=== PATIENT | female | born 1975 | race Caucasian/White ===

== ENCOUNTER 2017-08-15 13:57 | Observation (INO) ==
[2017-08-15] MEDS ORDERED: Ondansetron 4 MG/2 ML VIAL IVP ONE ×2 (15:37→18:01)
[2017-08-15] MEDS ORDERED: *HR* LORazepam 2 MG/ML VIAL IVP ONE (15:37)
[2017-08-15 15:43] LABS: Basophils # 0.1 K/mcL (0.0-0.2); Basophils % 0.3 %; Hematocrit 42.8 % (35.3-44.9); Hemoglobin 13.9 g/dL (11.5-15.4); Immature Granulocytes % 0.5 % (0-4); Lymphocytes % 6.6 %; Mean Corpuscular HGB Conc 32.5 g/dL (31.6-35.5); Mean Corpuscular Hemoglobin 28.7 pg (28.0-33.3); Mean Corpuscular Volume 88.2 fL (83.0-100.0); Mean Platelet Volume 10.1 fL (9.4-12.4); Monocytes # 0.2 K/mcL (0.0-1.3); Monocytes % 1.3 %; Neutrophils # 14.3 K/mcL (1.6-8.9); Platelet Count 340 K/mcL (140-400); Red Blood Count 4.85 M/mcL (3.82-4.97); Red Cell Distribution Width 14.2 % (11.5-14.5); Segmented Neutrophils % 91.3 %
--- NOTE | 2017-08-15 16:01 | Emergency Department Note ---
Disposition Clinical Impression: Colitis, Adrenal mass UTI (urinary tract infection) Qualifiers: Urinary tract infection type: site unspecified Hematuria presence: without hematuria Qualified Code(s): N39.0 - Urinary tract infection, site not specified Disposition: Home, Self-Care Condition: Good Time of Disposition: 17:58 General Adult HPI - General Chief complaint: ED Nausea/Vomiting/Diarrhea Stated complaint: vomiting Time Seen by Provider: 08/15/17 15:16 Source: patient Limitations: no limitations Nursing Notes Reviewed: Yes Vital Signs Reviewed: Yes - History of Present Illness HPI Narrative: Patient is a 42-year-old female that presents to the emergency department with abdominal pain. Since this is been ongoing for approximately one week. She states that it originally started on the left side of the abdomen but now is located in the upper center portion of her abdomen. She states that it is been hurting all week but was unable to get in to see the doctor. States that she has been vomiting multiple times and now just vomiting yellow. She states that she has never had anything like this before. States that anytime she eats or drinks she vomits and is unable to keep anything down. She describes this pain as burning. She rates her pain as a 9 out of 10. Patient denies any radiation of her pain. Pain Scale: 9 - Related Data Home Medications Medication Instructions Recorded Confirmed ALPRAZolam [Xanax 1 MG Tablet] 1 mg PO TID 08/15/17 08/15/17 Albuterol Sulfate [Proair Hfa] 2 puff IH Q4H PRN 08/15/17 08/15/17 Baclofen [Lioresal] 10 mg PO HS 08/15/17 08/15/17 Citalopram Hydrobromide [Celexa] 60 mg PO DAILY 08/15/17 08/15/17 Fexofenadine HCl 180 mg PO DAILY 08/15/17 08/15/17 Fluticasone Propionate Nasal 50 mcg NS DAILY 08/15/17 08/15/17 [Flonase] Gabapentin [Neurontin] 600 mg PO TID PRN 08/15/17 08/15/17 Losartan/HCTZ [Hyzaar 50-12.5 1 each PO DAILY 08/15/17 08/15/17 Tablet] Naproxen Sodium [Naproxen Sodium 550 mg PO BID 08/15/17 08/15/17 Ds] SUMAtriptan succinate [Imitrex] 25 mg PO Q2H PRN MDD 50 mg 08/15/17 08/15/17 Tiotropium Br/Olodaterol HCl 2 puff IH DAILY 08/15/17 08/15/17 [Stiolto Respimat Inhal [place]] Topiramate [Topamax] 50 mg PO HS 08/15/17 08/15/17 hydrOXYzine HCl [Hydroxyzine HCl] 25 mg PO TID PRN 08/15/17 08/15/17 Previous Rx's Medication Instructions Recorded Ciprofloxacin [Cipro] 500 mg PO BID #20 tablet 08/15/17 Promethazine [Phenergan] 25 mg RC BID PRN #12 supp.rect 08/15/17 metroNIDAZOLE [Flagyl] 500 mg PO TID #30 tablet 08/15/17 Allergies Allergy/AdvReac Type Severity Reaction Status Date / Time No Known Allergies Allergy Verified 08/15/17 14:01 All systems ED: reviewed and negative except as stated. 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 Absent: respiratory distress, wheezes - Cardiovascular Cardiovascular exam: Present: regular rate, normal rhythm, normal heart sounds, +S1, +S2 - Abdominal Exam Abdominal exam: Present: soft, tenderness, normal bowel sounds Abdominal tenderness: Present: epigastrium (Moderate), diffuse (Mild) - Neurological Exam Neurological exam: Present: alert, oriented X3 - Psychiatric Psychiatric exam: Present: normal affect, normal mood - Skin Skin exam: Present: warm, dry, intact Course Vital Signs Temperature 98.3 F 08/15/17 13:59 Pulse Rate 100 08/15/17 13:59 Respiratory Rate 16 08/15/17 13:59 Blood Pressure 145/79 08/15/17 13:59 O2 Sat by Pulse Oximetry 97 08/15/17 13:59 Temperature 100.0 F H 08/15/17 21:40 Pulse Rate 65 08/15/17 21:40 Respiratory Rate 14 08/15/17 21:40 Blood Pressure 132/69 08/15/17 21:40 O2 Sat by Pulse Oximetry 97 08/15/17 21:40 Oxygen Delivery Oxygen Delivery Room Air Medical Decision Making - MDM Narrative Medical decision making narrative: To the patient presenting with abdominal pain for one week with a CBC, BMP, hepatic panel and lipase, urinalysis and CT of the abdomen and pelvis. She is also stated that she has had chest pain for the past couple of days we will obtain a chest x-ray, troponin and EKG to evaluate this portion of the patient' s complaints. Patient had an elevated white count of 15.7. Patient's CT scan showed evidence of colitis. It also showed evidence of an adrenal mass and radiology recommended follow-up in 6-12 months. Patient's chest x-ray showed no acute cardiopulmonary process. Troponin was negative. The patient's lipase was 22. Urinalysis showed that the patient has a urinary tract infection. Patient will be put on Cipro and Flagyl which will cover for the colitis and urinary tract infection. The patient will also be given a dose of Decadron here in the emergency department in case this is an inflammatory process. The patient is stable and appropriate for discharge. The patient was discharged home with recommendation to follow up with gastroenterology and her primary care physician. I provided her with information to GI. The patient is stable and appropriate for discharge. The patient was discharged home at this time. - Lab Data Lab results reviewed: Yes I reviewed the patient's lab results. Result diagrams: 08/15/17 15:31 08/15/17 15:31 Lab Results 08/15/17 08/15/17 08/15/17 Range/Units 15:31 15:31 15:31 WBC 15.7 H (4.3-11.1) K/mcL RBC 4.85 (3.82-4.97) M/mcL Hgb 13.9 (11.5-15.4) g/dL Hct 42.8 (35.3-44.9) % MCV 88.2 (83.0-100.0) fL MCH 28.7 (28.0-33.3) pg MCHC 32.5 (31.6-35.5) g/dL RDW 14.2 (11.5-14.5) % Plt Count 340 (140-400) K/mcL MPV 10.1 (9.4-12.4) fL Immature Gran % 0.5 (0-4) % Seg Neutrophils % 91.3 % Lymphocytes % 6.6 % Monocytes % 1.3 % Eosinophils % 0.0 % Basophils % 0.3 % Neutrophils # 14.3 H (1.6-8.9) K/mcL Lymphocytes # 1.0 (0.6-4.6) K/mcL Monocytes # 0.2 (0.0-1.3) K/mcL Eosinophils # 0.0 (0.0-0.6) K/mcL Basophils # 0.1 (0.0-0.2) K/mcL Sodium 140 (136-145) mEq/L Potassium 3.8 (3.5-5.1) mEq/L Chloride 108 H (98-107) mEq/L Carbon Dioxide 25 (23-29) mEq/L BUN 12 (6-20) mg/dL Creatinine 0.66 (0.60-1.20) mg/dL Est GFR ( Amer) > 60 (> 60) Est GFR (Non-Af Amer) > 60 (> 60) BUN/Creatinine Ratio 18 (6-26) Glucose 163 H (70-105) mg/dL Calculated Osmolality 293 (280-300) Calcium 9.5 (8.6-10.3) mg/dL Magnesium 2.0 (1.6-2.6) mg/dL Total Bilirubin 0.3 (0.3-1.0) mg/dL Direct Bilirubin 0.0 (0.0-0.2) mg/dL Indirect Bilirubin 0.3 (0.0-1.2) mg/dL AST 12 L (13-39) Units/L ALT 9 (7-52) Units/L Alkaline Phosphatase 69 (34-104) Units/L Troponin I < 0.03 (< 0.04) ng/mL Serum Total Protein 7.3 (6.4-8.9) g/dL Albumin 4.2 (3.5-5.7) g/dL Globulin 3.1 (2.4-3.5) g/dL Albumin/Globulin Ratio 1.4 (1.1-2.2) Lipase 22 (11-82) Units/L Urine Color (Yellow) Urine Clarity (Clear) Urine pH (5.0-8.0) pH Units Ur Specific [place] (1.010-1.025) Urine Protein (Neg-Trace) mg/dL Urine Glucose (UA) (Normal) mg/dL Urine Ketones (Negative) mg/dL Urine Blood (Negative) Urine Nitrite (Negative) Urine Bilirubin (Negative) Urine Urobilinogen (Normal) mg/dL Ur Leukocyte Esterase (Negative) Urine Microscopic RBC (0-3) per hpf Urine Microscopic WBC (0-3) per hpf Ur Squamous Epith Cells (None-Few) per lpf Amorphous Sediment (Few) Urine Bacteria (None-Few) per hpf Hyaline Casts (None-Few) per lpf Ur Culture Indicated? (NO) 08/15/17 Range/Units 16:17 WBC (4.3-11.1) K/mcL RBC (3.82-4.97) M/mcL Hgb (11.5-15.4) g/dL Hct (35.3-44.9) % MCV (83.0-100.0) fL MCH (28.0-33.3) pg MCHC (31.6-35.5) g/dL RDW (11.5-14.5) % Plt Count (140-400) K/mcL MPV (9.4-12.4) fL Immature Gran % (0-4) % Seg Neutrophils % % Lymphocytes % % Monocytes % % Eosinophils % % Basophils % % Neutrophils # (1.6-8.9) K/mcL Lymphocytes # (0.6-4.6) K/mcL Monocytes # (0.0-1.3) K/mcL Eosinophils # (0.0-0.6) K/mcL Basophils # (0.0-0.2) K/mcL Sodium (136-145) mEq/L Potassium (3.5-5.1) mEq/L Chloride (98-107) mEq/L Carbon Dioxide (23-29) mEq/L BUN (6-20) mg/dL Creatinine (0.60-1.20) mg/dL Est GFR ( Amer) (> 60) Est GFR (Non-Af Amer) (> 60) BUN/Creatinine Ratio (6-26) Glucose (70-105) mg/dL Calculated Osmolality (280-300) Calcium (8.6-10.3) mg/dL Magnesium (1.6-2.6) mg/dL Total Bilirubin (0.3-1.0) mg/dL Direct Bilirubin (0.0-0.2) mg/dL Indirect Bilirubin (0.0-1.2) mg/dL AST (13-39) Units/L ALT (7-52) Units/L Alkaline Phosphatase (34-104) Units/L Troponin I (< 0.04) ng/mL Serum Total Protein (6.4-8.9) g/dL Albumin (3.5-5.7) g/dL Globulin (2.4-3.5) g/dL Albumin/Globulin Ratio (1.1-2.2) Lipase (11-82) Units/L Urine Color Yellow (Yellow) Urine Clarity Cloudy A (Clear) Urine pH 7.5 (5.0-8.0) pH Units Ur Specific [place] 1.022 (1.010-1.025) Urine Protein 30 H (Neg-Trace) mg/dL Urine Glucose (UA) Normal (Normal) mg/dL Urine Ketones Negative (Negative) mg/dL Urine Blood Small H (Negative) Urine Nitrite Positive A (Negative) Urine Bilirubin Negative (Negative) Urine Urobilinogen Normal (Normal) mg/dL Ur Leukocyte Esterase Small H (Negative) Urine Microscopic RBC 3-5 H (0-3) per hpf Urine Microscopic WBC 15-30 H (0-3) per hpf Ur Squamous Epith Cells Moderate H (None-Few) per lpf Amorphous Sediment Few (Few) Urine Bacteria Many H (None-Few) per hpf Hyaline Casts Few (None-Few) per lpf Ur Culture Indicated? YES A (NO) - Radiology Data Radiology results reviewed: Yes I reviewed the patient's radiology results. Abdomen/Pelvis CT 08/15/17 15:35 IMPRESSION: Mucosal thickening of the rectosigmoid colon with serosal haziness and mild pericolonic fat stranding without abscess formation, findings most compatible with colitis. The patient has evidence of pulmonary and splenic granulomatous disease. Right hypodense adrenal masses noted, likely an adenoma. RECOMMENDATIONS: Due to size of right adrenal lesion, would suggest follow-up CT scan in 6 to 12 months with attention to the adrenals. D/ / 08/15/2017 17:28:38 Nubia Win MD / [email or web address] Interpreting Provider: Nubia Win MD Chest X-Ray 08/15/17 15:58 IMPRESSION: No acute cardiopulmonary process D/ / 08/15/2017 16:58:31 Brian Green MD / [email or web address] Interpre[facility] Provider: Brian Green MD - EKG Data EKG #1 EKG attestation: Yes I reviewed and interpreted this EKG. EKG results narrative: EKG showed a sinus rhythm at a rate of 61 beats minute, VA interval of 234, QRS duration of 85, QTC of 429 with a normal axis. There is no STEMI noted on EKG. Attestation Statement - Attestation Attestation: I examined this patient and my medical decision-making was reviewed with the Resident Physician. I agree with the documented findings, disposition and treatment plan as described except to the extent set forth below. Findings consistent with colitis. Patient has intractable nausea or vomiting. We had several attempts at discharge however patient has ongoing nausea despite multiple medication interventions. We will admit for further evaluation. Antibiotics were initiated.
[2017-08-15 16:10] LABS: Alanine Aminotransferase 9 Units/L (7-52); Albumin 4.2 g/dL (3.5-5.7); Albumin/Globulin Ratio 1.4 (1.1-2.2); Alkaline Phosphatase 69 Units/L (34-104); Aspartate Amino Transferase 12 Units/L (13-39); BUN/Creatinine Ratio 18 (6-26); Bilirubin,Indirect 0.3 mg/dL (0.0-1.2); Bilirubin,Total 0.3 mg/dL (0.3-1.0); Blood Urea Nitrogen 12 mg/dL (6-20); Calcium 9.5 mg/dL (8.6-10.3); Carbon Dioxide 25 mEq/L (23-29); Chloride 108 mEq/L (98-107); Globulin 3.1 g/dL (2.4-3.5); Glucose 163 mg/dL (70-105); Lipase 22 Units/L (11-82); Osmolality,Calculated 293 (280-300); Potassium 3.8 mEq/L (3.5-5.1); Sodium 140 mEq/L (136-145); Total Protein 7.3 g/dL (6.4-8.9); eGFR For African Americans > 60 (> 60); eGFR For Non-African Americans > 60 (> 60)
[2017-08-15 16:25] LABS: Bilirubin,Urine Negative (Negative); Blood,Urine Small (Negative); Clarity,Urine Cloudy (Clear); Color,Urine Yellow (Yellow); Glucose,Urine (UA) Normal (Normal); Ketones,Urine Negative (Negative); Leukocyte Esterase,Urine Small (Negative); Nitrite,Urine Positive (Negative); PH,Urine 7.5 pH Units (5.0-8.0); Protein,Urine 30 mg/dL (Neg-Trace); Specific Gravity,Urine 1.022 (1.010-1.025); Urobilinogen,Urine Normal (Normal)
[2017-08-15 16:28] LABS: Bacteria,Urine Many per hpf (None-Few); Hyaline Casts,Urine Few per lpf (None-Few); Squamous Epithelial Cell,Urine Moderate per lpf (None-Few); WBC,Urine 15-30 per hpf (0-3)
[2017-08-15] MEDS: 0.9 % Sodium Chloride 1,000 ML IVC SCH ×2 (16:34→18:45)
[2017-08-15 16:38] LABS: Amorphous Sediment,Urine Few (Few)
[2017-08-15] MEDS ORDERED: Dexamethasone 4 MG/ML VIAL IVP ONE (17:50)
[2017-08-15] MEDS ORDERED: Haloperidol Lactate 5 MG/ML VIAL IVP ONE (18:34)
[2017-08-15] MEDS ORDERED: Naloxone 0.4 MG/ML INJ IVP PRN (20:15)
[2017-08-15] MEDS: D5% in 0.45% NACL 1,000 ML IVC SCH (21:53)
--- NOTE | 2017-08-15 22:04 | Internal Med History&Physical ---
Date of Encounter: 08/15/17 Time of Encounter: 21:00 Assessment and Plan (1) SIRS (systemic inflammatory response syndrome) Current visit: Yes Status: Acute Admit the pt into Med Surg She does meet SIRS criteria with Fever and source of inf as colitis cont IV hydration Empirical abx (2) Rectosigmoiditis Current visit: Yes Status: Acute Reviewed CT of Abd / P - noticed recto sigmoid colitis concerned for inflammatory bowel disease too..especially with family h/o Crohn' s disease will start her on empirical abx Cipro + Flagyl pt never had colonoscopy..she may get benefit the colonoscopy will consult GI in AM NPO after mid night Cont symptomatic and supportive care (3) Colitis Current visit: Yes Status: Acute (4) Adrenal mass Current visit: Yes Status: Acute incidental finding need out pt f/u pt does aware of it (5) UTI (urinary tract infection) Current visit: Yes Status: Acute UA looks abnormal on abx Cipro f/u on urine cx Qualifiers: Urinary tract infection type: site unspecified Hematuria presence: without hematuria Qualified Code(s): N39.0 - Urinary tract infection, site not specified (6) HTN (hypertension) Current visit: Yes Status: Acute stable resumed home meds Qualifiers: Hypertension type: essential hypertension Qualified Code(s): I10 - Essential (primary) hypertension (7) COPD (chronic obstructive pulmonary disease) Current visit: Yes Status: Chronic not in exacerbation resumed home regimen Qualifiers: Qualified Code(s): J44.9 - Chronic obstructive pulmonary disease, unspecified (8) Anxiety Current visit: Yes Status: Chronic resumed home meds (9) Tobacco dependence Current visit: Yes Status: Acute counseled to quit on nicotine patch Internal Medicine - H&P: HPI Chief complaint: Abdominal pain, N/V Admitted From: Emergency Dept Plans for Post Hospital Care: Home History of present illness: Ms. Espinoza is a 42 year old female with known PMH of HTN, COPD, not on home O2 dependent, chronic tobacco dependence and anxiety pt presents to the emergency department with abdominal pain, intractable nausea and vomiting since Saturday. She states that it originally started on the left side of the abdomen but now is located in the upper center portion of her abdomen. She states that it is been hurting all week but was unable to get in to see the doctor. States that she has been vomiting multiple times and now just vomiting yellow. She states that she has never had anything like this before. She describes this pain as burning, 9 out of 10 in severity and non radiating. She also started having diarrhea since this morning. Denied any melena / BRBPR / Hematemesis Past Med Surg Social Fam HX - Past Medical History Medical history: asthma, diabetes, hypertension Psychiatric history: anxiety - Past Surgical History Surgical History: , other - Social History Smoking Status: Current every day smoker Smokeless Tobacco Status: No Alcohol use: occasionally Drug use: none - Family History Mother Hx Family Genitourinary Disorders: Yes (kidney problems) Hx Family Endocrine Disorder: Yes (DM) Father Hx Family Cardiac Disorders: Yes ([place]) Hx Family Respiratory Disorders: Yes Internal Medicine - H&P: Meds ALPRAZolam [Xanax 1 MG Tablet] 1 mg PO TID 08/15/17 [History] Albuterol Sulfate [Proair Hfa] 2 puff IH Q4H PRN 08/15/17 [History] Baclofen [Lioresal] 10 mg PO HS 08/15/17 [History] Ciprofloxacin [Cipro] 500 mg PO BID #20 tablet 08/15/17 [Rx] Citalopram Hydrobromide [Celexa] 60 mg PO DAILY 08/15/17 [History] Fexofenadine HCl 180 mg PO DAILY 08/15/17 [History] Fluticasone Propionate Nasal [Flonase] 50 mcg NS DAILY 08/15/17 [History] Gabapentin [Neurontin] 600 mg PO TID PRN 08/15/17 [History] Losartan/HCTZ [Hyzaar 50-12.5 Tablet] 1 each PO DAILY 08/15/17 [History] Naproxen Sodium [Naproxen Sodium Ds] 550 mg PO BID 08/15/17 [History] Promethazine [Phenergan] 25 mg RC BID PRN #12 supp.rect 08/15/17 [Rx] SUMAtriptan succinate [Imitrex] 25 mg PO Q2H PRN MDD 50 mg 08/15/17 [History] Tiotropium Br/Olodaterol HCl [Stiolto Respimat Inhal [place]] 2 puff IH DAILY 02/22 [History] Topiramate [Topamax] 50 mg PO HS 08/15/17 [History] hydrOXYzine HCl [Hydroxyzine HCl] 25 mg PO TID PRN 08/15/17 [History] metroNIDAZOLE [Flagyl] 500 mg PO TID #30 tablet 08/15/17 [Rx] 3 Allergy/AdvReac Type Severity Reaction Status Date / Time No Known Allergies Allergy Verified 08/15/17 14:01 All Systems PM: A 10-system review of systems was performed and is negative for pertinent findings except as documented above in the HPI. Review of systems: All the systems are reviewed everything is benign except the systems and symptoms I mentioned in the history of present illness - Constitutional Vitals: Temp Pulse Resp BP Pulse Ox 100.0 F H 65 14 132/69 97 08/15/17 21:40 08/15/17 21:40 08/15/17 21:40 08/15/17 21:40 08/15/17 21:40 General appearance: Present: mild distress, A&O X 3, answers questions appropriately Exam: Looks weak and lethargic - Head Head exam: Present: atraumatic, normal inspection - Respiratory Respiratory exam: Present: decreased breath sounds. Absent: rales, respiratory distress, rhonchi, wheezes - Cardiovascular Cardiovascular exam: Present: RRR, +S1, +S2. Absent: tachycardia - GI/Abdominal GI/Abdominal exam: Present: normal bowel sounds, soft, tenderness (Lower abdomen ). Absent: distended, guarding, rebound, rigid - Extremities Exam Extremities exam: Absent: calf tenderness, pedal edema, tenderness - Back Exam Back exam: Absent: CVA tenderness (L), CVA tenderness (R) - Neurological Exam Neurological exam: Present: alert, oriented X3 - Psychiatric Psychiatric exam: Present: normal affect, normal mood - Skin Skin exam: Absent: rash Internal Med - H&P Results - Labs CBC & Chem 7: 08/15/17 15:31 08/15/17 15:31
[2017-08-15] MEDS ORDERED: hydrOXYzine pamoate 25 MG CAPSULE PO PRN (22:13)
[2017-08-15] MEDS ORDERED: ALPRAZolam 1 MG TABLET PO PRN (22:13)
[2017-08-15] MEDS ORDERED: *HR* FentaNYL (PF) 100 MCG/2 ML VIAL IVP PRN (22:13)
[2017-08-15] MEDS ORDERED: Gabapentin 300 MG CAPSULE PO PRN (22:13)
[2017-08-15] MEDS: Ondansetron 4 MG/2 ML VIAL IVP PRN (22:40)
[2017-08-16] MEDS: Acetaminophen 325 MG TABLET PO PRN ×2 (03:21→20:02)
[2017-08-16] MEDS: *HR* Promethazine 25 MG/ML VIAL IVP PRN ×4 (03:25→23:18)
[2017-08-16 05:24] LABS: Basophils % 0.1 %; Hematocrit 38.9 % (35.3-44.9); Hemoglobin 12.8 g/dL (11.5-15.4); Immature Granulocytes % 0.6 % (0-4); Lymphocytes # 1.6 K/mcL (0.6-4.6); Lymphocytes % 9.8 %; Mean Corpuscular HGB Conc 32.9 g/dL (31.6-35.5); Mean Corpuscular Hemoglobin 28.8 pg (28.0-33.3); Mean Corpuscular Volume 87.4 fL (83.0-100.0); Mean Platelet Volume 10.6 fL (9.4-12.4); Monocytes # 0.6 K/mcL (0.0-1.3); Neutrophils # 13.5 K/mcL (1.6-8.9); Platelet Count 297 K/mcL (140-400); Red Blood Count 4.45 M/mcL (3.82-4.97); Red Cell Distribution Width 14.4 % (11.5-14.5); Segmented Neutrophils % 85.5 %
[2017-08-16] MEDS: D5% in 0.45% NACL 1,000 ML IVC SCH (05:41)
[2017-08-16] MEDS: *HR* Enoxaparin 40 MG/0.4 ML SYRINGE SQ SCH (05:42)
[2017-08-16 05:57] LABS: BUN/Creatinine Ratio 22 (6-26); Blood Urea Nitrogen 12 mg/dL (6-20); Calcium 8.6 mg/dL (8.6-10.3); Carbon Dioxide 23 mEq/L (23-29); Chloride 109 mEq/L (98-107); Glucose 153 mg/dL (70-105); Osmolality,Calculated 289 (280-300); Potassium 3.3 mEq/L (3.5-5.1); Sodium 138 mEq/L (136-145); eGFR For African Americans > 60 (> 60); eGFR For Non-African Americans > 60 (> 60)
--- NOTE | 2017-08-16 06:39 | Electrocardiograph Report ---
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
[2017-08-16] MEDS: Losartan/HCTZ 50-12.5 TABLET PO SCH (08:36)
[2017-08-16] MEDS: Loratadine 10 MG TABLET PO SCH (08:36)
[2017-08-16] MEDS: Fluticasone Propionate Nasal 50 MCG/SPRAY BOTTLE NS SCH (08:36)
[2017-08-16] MEDS: Ondansetron 4 MG/2 ML VIAL IVP PRN ×3 (08:37→20:02)
[2017-08-16] MEDS: *HR* HYDROcodone/Acet 5/325 mg TABLET PO PRN ×2 (10:55→21:03)
[2017-08-16] MEDS: 0.9 % Sodium Chloride 1,000 ML IVC SCH ×7 (11:08→16:23)
--- NOTE | 2017-08-16 15:05 | Internal Med Progress Note ---
Date of Encounter: 08/16/17 Time of Encounter: 13:00 - Assessment and plan (1) SIRS (systemic inflammatory response syndrome) Current Visit: Yes Status: Acute Assessment and plan: Meets SIRS criteria with fever and source of infection as colitis, UTI. WBC 15K , afebrile at this time. Continue IV fluids, IV ATB. Lactic acid pending. Aggressive IS (2) Rectosigmoiditis Current Visit: Yes Status: Acute Assessment and plan: Presented to ER with abdominal pain. ABD CT concerning for rectosigmoid colitis. Keep NPO, continue IV Flagyl, Cipro. GI consulted (3) UTI (urinary tract infection) Current Visit: Yes Status: Acute Assessment and plan: UA indicative of UTI. Continue Cipro. Urine culture pending, narrow accordingly as culture finalizes. Qualifiers: Urinary tract infection type: site unspecified Hematuria presence: without hematuria Qualified Code(s): N39.0 - Urinary tract infection, site not specified (4) Lethargy Current Visit: Yes Status: Acute Assessment and plan: lethargy noted on 08/16 exam. Suspect secondary to acute illness and polypharmacy. Patient is on multiple sedating/psychiatric medications. Holding home baclofen (5) COPD (chronic obstructive pulmonary disease) Current Visit: Yes Status: Chronic Assessment and plan: per hx. CXR without nonacute. No evidence of acute exacerbation. Qualifiers: Qualified Code(s): J44.9 - Chronic obstructive pulmonary disease, unspecified (6) HTN (hypertension) Current Visit: Yes Status: Acute Assessment and plan: per hx. BP variable but acceptable. Continue home BP medication. Monitor BP and titrate PRN Qualifiers: Hypertension type: essential hypertension Qualified Code(s): I10 - Essential (primary) hypertension (7) DVT prophylaxis Current Visit: Yes Status: Acute Assessment and plan: lovenox - Subjective Interval history: Seen and examined at bedside. Patient is new to me. Information obtained from chart review and patient report. She does not provide much detail during exam. She is drowsy and will only open eyes to name is called. Shakes head when asked if she is having abdominal pain, otherwise is all for any other patient. No family available for collateral. - Constitutional Vitals: Temp Pulse Resp BP Pulse Ox 98.2 F 61 16 143/74 97 08/16/17 10:44 08/16/17 10:44 08/16/17 10:44 08/16/17 10:44 08/16/17 10:44 General appearance: Present: A&O X 3, answers questions appropriately - Head Head exam: Present: atraumatic, normocephalic - Eye Eye exam: Present: PERRL, conjuntiva pink, sclera anicteric Pupils: Present: PERRL - Neck Neck exam general surgery: Present: supple, trachea midline. Absent: lymphadenopathy - Respiratory Respiratory exam: Present: CTAB. Absent: accessory muscle use, rales, rhonchi, wheezes - Cardiovascular Cardiovascular exam: Present: RRR, +S1, +S2. Absent: diastolic murmur, gallop, rubs, systolic murmur - GI/Abdominal GI/Abdominal exam: Present: normal bowel sounds, soft, no peritoneal signs. Absent: distended, tenderness - Extremities Exam Extremities exam: Present: warm, radial pulses palpable and symmetrical. Absent : calf tenderness, cyanotic, pedal edema - Neurological Exam Neurological exam: Present: CN II-XII intact, oriented X3, no focal deficits. Absent: pronater drift, facial droop, speech deficit - Skin Skin exam: Present: dry, intact Internal Medicine: Result - Labs CBC & Chem 7: 08/16/17 04:47 08/16/17 04:47 Labs: Short CBC 08/16/17 Range/Units 04:47 WBC 15.8 H (4.3-11.1) K/mcL Hgb 12.8 (11.5-15.4) g/dL Hct 38.9 (35.3-44.9) % Plt Count 297 (140-400) K/mcL Neutrophils # 13.5 H (1.6-8.9) K/mcL BMP 08/16/17 04:47 Sodium 138 Potassium 3.3 L Chloride 109 H Carbon Dioxide 23 BUN 12 Creatinine 0.54 L Glucose 153 H Calcium 8.6 Consult Discharge Plan - Plan Referrals: Seth Mccurdy DO [Primary Care Provider] -
[2017-08-16] MEDS: SUMAtriptan succinate 25 MG TABLET PO PRN (20:02)
[2017-08-16] MEDS: ALPRAZolam 1 MG TABLET PO PRN (20:03)
[2017-08-16] MEDS: Topiramate 25 MG TABLET PO SCH (20:59)
[2017-08-16] MEDS: MetroNIDAZOLE 500 MG/100 ML 500 MG/100 ML BAG IVPB SCH (20:59)
[2017-08-16] MEDS ORDERED: Baclofen 10 MG TABLET PO SCH (21:00)
[2017-08-17] MEDS: Ondansetron 4 MG/2 ML VIAL IVP PRN ×4 (03:36→23:51)
[2017-08-17] MEDS: *HR* HYDROcodone/Acet 5/325 mg TABLET PO PRN ×4 (03:44→23:50)
[2017-08-17] MEDS: SUMAtriptan succinate 25 MG TABLET PO PRN ×2 (03:58→09:16)
[2017-08-17 04:26] LABS: Hematocrit 38.6 % (35.3-44.9); Hemoglobin 12.8 g/dL (11.5-15.4); Mean Corpuscular HGB Conc 33.2 g/dL (31.6-35.5); Mean Corpuscular Hemoglobin 28.8 pg (28.0-33.3); Mean Corpuscular Volume 86.7 fL (83.0-100.0); Mean Platelet Volume 10.2 fL (9.4-12.4); Platelet Count 269 K/mcL (140-400); Red Blood Count 4.45 M/mcL (3.82-4.97); Red Cell Distribution Width 14.3 % (11.5-14.5)
[2017-08-17] MEDS: ALPRAZolam 1 MG TABLET PO PRN ×2 (04:33→17:47)
[2017-08-17] MEDS: MetroNIDAZOLE 500 MG/100 ML 500 MG/100 ML BAG IVPB SCH ×3 (06:19→21:40)
[2017-08-17] MEDS: *HR* Enoxaparin 40 MG/0.4 ML SYRINGE SQ SCH (06:23)
[2017-08-17] MEDS: 0.9 % Sodium Chloride 1,000 ML IVC SCH (09:29)
[2017-08-17] MEDS: *HR* Promethazine 25 MG/ML VIAL IVP PRN ×3 (09:42→21:35)
[2017-08-17] MEDS: Losartan/HCTZ 50-12.5 TABLET PO SCH (09:47)
[2017-08-17] MEDS: Loratadine 10 MG TABLET PO SCH (09:47)
[2017-08-17] MEDS: Fluticasone Propionate Nasal 50 MCG/SPRAY BOTTLE NS SCH (09:48)
[2017-08-17 12:55] LABS: BUN/Creatinine Ratio 20 (6-26); Blood Urea Nitrogen 12 mg/dL (6-20); Calcium 8.6 mg/dL (8.6-10.3); Carbon Dioxide 25 mEq/L (23-29); Chloride 106 mEq/L (98-107); Glucose 106 mg/dL (70-105); Osmolality,Calculated 288 (280-300); Sodium 139 mEq/L (136-145); eGFR For African Americans > 60 (> 60); eGFR For Non-African Americans > 60 (> 60)
[2017-08-17] MEDS: amLODIPine 5 MG TABLET PO SCH (15:19)
--- NOTE | 2017-08-17 16:52 | Internal Med Progress Note ---
Date of Encounter: 08/17/17 Time of Encounter: 11:30 - Assessment and plan (1) Rectosigmoiditis Current Visit: Yes Status: Acute Assessment and plan: Presented to ER with abdominal pain. ABD CT concerning for rectosigmoid colitis. Patient has history of ulcerative colitis and family. Initially managed with NPO, advance diet to clears as she tolerates. Cont IV Flagyl, Cipro. EGD planned 08/19. GI following. (2) SIRS (systemic inflammatory response syndrome) Current Visit: Yes Status: Acute Assessment and plan: Meets SIRS criteria with fever and source of infection as colitis, UTI. WBC 15K , afebrile at this time. Continue IV fluids, IV ATB. Lactic acid pending. Aggressive IS (3) UTI (urinary tract infection) Current Visit: Yes Status: Acute Assessment and plan: UA indicative of UTI. Urine culture with pansensitive Escherichia coli. Start ceftriaxone. Qualifiers: Urinary tract infection type: site unspecified Hematuria presence: without hematuria Qualified Code(s): N39.0 - Urinary tract infection, site not specified (4) Hypokalemia Current Visit: Yes Status: Acute Assessment and plan: K 3.0; replacement ordered. Monitor repeat potassium level (5) Lethargy Current Visit: Yes Status: Acute Assessment and plan: lethargy noted on 08/16 exam. Suspect secondary to acute illness and polypharmacy. Patient is on multiple sedating/psychiatric medications. Holding home baclofen. Resume Xanax decreased to twice a day. Mentation significantly improved on 08/17 (6) COPD (chronic obstructive pulmonary disease) Current Visit: Yes Status: Chronic Assessment and plan: per hx. CXR without nonacute. No evidence of acute exacerbation. Qualifiers: Qualified Code(s): J44.9 - Chronic obstructive pulmonary disease, unspecified (7) HTN (hypertension) Current Visit: Yes Status: Acute Assessment and plan: per hx. BP controlled requiring PRN hydralazine. Continue home ARB/HCTZ, add amlodipine. Monitor BP and titrate PRN Qualifiers: Hypertension type: essential hypertension Qualified Code(s): I10 - Essential (primary) hypertension (8) DVT prophylaxis Current Visit: Yes Status: Acute Assessment and plan: lovenox - Subjective Interval history: Seen and examined at bedside; mentation significantly improved from yesterday's exam. She is still complaining of some abdominal discomfort, but overall improved. No fevers or chills. Has some intermittent dysuria. She has an appetite would like to increase her diet if possible. Discussed case with Dr. Addison and he is aware of consult. - Constitutional Vitals: Temp Pulse Resp BP Pulse Ox 97.8 F 59 15 158/77 97 08/17/17 15:31 08/17/17 15:31 08/17/17 15:31 08/17/17 15:31 08/17/17 15:31 General appearance: Present: A&O X 3, answers questions appropriately - Head Head exam: Present: atraumatic, normocephalic - Eye Eye exam: Present: PERRL, conjuntiva pink, sclera anicteric Pupils: Present: PERRL - Neck Neck exam general surgery: Present: supple, trachea midline. Absent: lymphadenopathy - Respiratory Respiratory exam: Present: CTAB. Absent: accessory muscle use, rales, rhonchi, wheezes - Cardiovascular Cardiovascular exam: Present: RRR, +S1, +S2. Absent: diastolic murmur, gallop, rubs, systolic murmur - GI/Abdominal GI/Abdominal exam: Present: normal bowel sounds, soft, no peritoneal signs. Absent: distended, tenderness - Extremities Exam Extremities exam: Present: warm, radial pulses palpable and symmetrical. Absent : calf tenderness, cyanotic, pedal edema - Neurological Exam Neurological exam: Present: CN II-XII intact, oriented X3, no focal deficits. Absent: pronater drift, facial droop, speech deficit - Skin Skin exam: Present: dry, intact Internal Medicine: Result - Labs CBC & Chem 7: 08/17/17 04:18 08/17/17 12:08 Labs: Short CBC 08/17/17 Range/Units 04:18 WBC 14.8 H (4.3-11.1) K/mcL Hgb 12.8 (11.5-15.4) g/dL Hct 38.6 (35.3-44.9) % Plt Count 269 (140-400) K/mcL BMP 08/17/17 12:08 Sodium 139 Potassium 3.0 L Chloride 106 Carbon Dioxide 25 BUN 12 Creatinine 0.61 Glucose 106 H Calcium 8.6 Consult Discharge Plan - Plan Referrals: Seth Mccurdy DO [Primary Care Provider] -
[2017-08-17] MEDS: cefTRIAXone 1,000 MG in Water for inj. (sterile) 20 ML 10 ML IVP SCH (17:45)
[2017-08-17 17:57] LABS: Hematocrit 39.7 % (35.3-44.9); Hemoglobin 13.2 g/dL (11.5-15.4); Immature Platelets 3.5 % (1.1-6.1); Mean Corpuscular HGB Conc 33.2 g/dL (31.6-35.5); Mean Corpuscular Hemoglobin 28.9 pg (28.0-33.3); Mean Corpuscular Volume 87.1 fL (83.0-100.0); Mean Platelet Volume 10.2 fL (9.4-12.4); Red Blood Count 4.56 M/mcL (3.82-4.97); Red Cell Distribution Width 14.2 % (11.5-14.5)
[2017-08-17] MEDS: Topiramate 25 MG TABLET PO SCH (21:44)
[2017-08-18] MEDS: 0.9 % Sodium Chloride 1,000 ML IVC SCH ×2 (02:35→15:36)
[2017-08-18] MEDS: *HR* Promethazine 25 MG/ML VIAL IVP PRN ×4 (03:31→20:21)
[2017-08-18] MEDS: MetroNIDAZOLE 500 MG/100 ML 500 MG/100 ML BAG IVPB SCH ×3 (05:04→20:34)
[2017-08-18] MEDS: SUMAtriptan succinate 25 MG TABLET PO PRN (05:04)
[2017-08-18 05:21] LABS: BUN/Creatinine Ratio 17 (6-26); Blood Urea Nitrogen 9 mg/dL (6-20); Calcium 8.6 mg/dL (8.6-10.3); Carbon Dioxide 25 mEq/L (23-29); Chloride 109 mEq/L (98-107); Glucose 109 mg/dL (70-105); Osmolality,Calculated 291 (280-300); Potassium 3.3 mEq/L (3.5-5.1); Sodium 141 mEq/L (136-145); eGFR For African Americans > 60 (> 60); eGFR For Non-African Americans > 60 (> 60)
[2017-08-18] MEDS: *HR* HYDROcodone/Acet 5/325 mg TABLET PO PRN ×3 (06:12→18:10)
[2017-08-18] MEDS: Ondansetron 4 MG/2 ML VIAL IVP PRN ×3 (06:12→18:09)
[2017-08-18] MEDS: *HR* Enoxaparin 40 MG/0.4 ML SYRINGE SQ SCH (06:17)
[2017-08-18] MEDS: amLODIPine 5 MG TABLET PO SCH (08:31)
[2017-08-18] MEDS: Loratadine 10 MG TABLET PO SCH (08:32)
[2017-08-18] MEDS: Losartan/HCTZ 50-12.5 TABLET PO SCH (08:32)
[2017-08-18] MEDS: ALPRAZolam 1 MG TABLET PO PRN ×2 (08:37→20:21)
[2017-08-18] MEDS: Fluticasone Propionate Nasal 50 MCG/SPRAY BOTTLE NS SCH (08:39)
[2017-08-18] MEDS ORDERED: SODIUM CHLORIDE/NAHCO3/KCL/PEG 4,000 ML SOLN.RECON PO ONE (11:10)
--- NOTE | 2017-08-18 11:44 | Internal Med Progress Note ---
Date of Encounter: 08/18/17 Time of Encounter: 11:13 - Assessment and plan (1) Rectosigmoiditis Current Visit: Yes Status: Acute Assessment and plan: Presented to ER with abdominal pain. ABD CT concerning for rectosigmoid colitis. Patient has history of ulcerative colitis and family. Initially managed with NPO, advance diet to clears as she tolerates. Cont IV Flagyl, Cipro. EGD planned 08/19. Start bowel prep this evening. NPO AT 0700. GI following. (2) SIRS (systemic inflammatory response syndrome) Current Visit: Yes Status: Acute Assessment and plan: Meets SIRS criteria with fever and source of infection as colitis, UTI. Cont to have intermittent fevers. Repeat CXR nonacute. ontinue IV fluids, IV ATB. Aggressive IS. CBC pending (3) UTI (urinary tract infection) Current Visit: Yes Status: Acute Assessment and plan: UA indicative of UTI. Urine culture with pansensitive Escherichia coli. Cont ceftriaxone-day 2 Qualifiers: Urinary tract infection type: site unspecified Hematuria presence: without hematuria Qualified Code(s): N39.0 - Urinary tract infection, site not specified (4) Hypokalemia Current Visit: Yes Status: Acute Assessment and plan: K 3.0; replacement ordered. Monitor repeat potassium level (5) Lethargy Current Visit: Yes Status: Acute Assessment and plan: lethargy noted on 08/16 exam. Suspect secondary to acute illness and polypharmacy. Patient is on multiple sedating/psychiatric medications. Holding home baclofen. Home Xanax decreased to twice a day. Mentation improved as of (6) COPD (chronic obstructive pulmonary disease) Current Visit: Yes Status: Chronic Assessment and plan: per hx. CXR without nonacute. No evidence of acute exacerbation. Qualifiers: Qualified Code(s): J44.9 - Chronic obstructive pulmonary disease, unspecified (7) HTN (hypertension) Current Visit: Yes Status: Acute Assessment and plan: per hx. BP controlled requiring PRN hydralazine. Continue home ARB/HCTZ, add amlodipine. Monitor BP and titrate PRN Qualifiers: Hypertension type: essential hypertension Qualified Code(s): I10 - Essential (primary) hypertension (8) DVT prophylaxis Current Visit: Yes Status: Acute Assessment and plan: lovenox - Subjective Interval history: Seen and examined at bedside; says she feels okay today. Still with mild ABD pain. She is aware of need for bowel prep today and plan for EGD in a.m. - Constitutional Vitals: Temp Pulse Resp BP Pulse Ox 99.4 F 67 16 170/84 97 08/18/17 07:33 08/18/17 07:33 08/18/17 07:33 08/18/17 07:33 08/18/17 07:33 General appearance: Present: A&O X 3, answers questions appropriately - Head Head exam: Present: atraumatic, normocephalic - Eye Eye exam: Present: PERRL, conjuntiva pink, sclera anicteric Pupils: Present: PERRL - Neck Neck exam general surgery: Present: supple, trachea midline. Absent: lymphadenopathy - Respiratory Respiratory exam: Present: CTAB. Absent: accessory muscle use, rales, rhonchi, wheezes - Cardiovascular Cardiovascular exam: Present: RRR, +S1, +S2. Absent: diastolic murmur, gallop, rubs, systolic murmur - GI/Abdominal GI/Abdominal exam: Present: normal bowel sounds, soft, no peritoneal signs. Absent: distended, tenderness - Extremities Exam Extremities exam: Present: warm, radial pulses palpable and symmetrical. Absent : calf tenderness, cyanotic, pedal edema - Neurological Exam Neurological exam: Present: CN II-XII intact, oriented X3, no focal deficits. Absent: pronater drift, facial droop, speech deficit - Skin Skin exam: Present: dry, intact Internal Medicine: Result - Labs CBC & Chem 7: 08/17/17 17:40 08/18/17 03:54 Labs: Short CBC 08/17/17 Range/Units 17:40 WBC 16.5 H (4.3-11.1) K/mcL Hgb 13.2 (11.5-15.4) g/dL Hct 39.7 (35.3-44.9) % Plt Count 276 (140-400) K/mcL BMP 08/17/17 08/18/17 12:08 03:54 Sodium 139 141 Potassium 3.0 L 3.3 L Chloride 106 109 H Carbon Dioxide 25 25 BUN 12 9 Creatinine 0.61 0.54 L Glucose 106 H 109 H Calcium 8.6 8.6 Consult Discharge Plan - Plan Referrals: Seth Mccurdy DO [Primary Care Provider] -
[2017-08-18 12:49] LABS: Hematocrit 43.2 % (35.3-44.9); Hemoglobin 14.2 g/dL (11.5-15.4); Immature Platelets 3.1 % (1.1-6.1); Mean Corpuscular HGB Conc 32.9 g/dL (31.6-35.5); Mean Corpuscular Hemoglobin 28.5 pg (28.0-33.3); Mean Corpuscular Volume 86.6 fL (83.0-100.0); Mean Platelet Volume 10.2 fL (9.4-12.4); Red Blood Count 4.99 M/mcL (3.82-4.97)
[2017-08-18] MEDS: cefTRIAXone 1,000 MG in Water for inj. (sterile) 20 ML 10 ML IVP SCH (15:30)
[2017-08-18] MEDS: Topiramate 25 MG TABLET PO SCH (20:20)
[2017-08-19] MEDS: SUMAtriptan succinate 25 MG TABLET PO PRN (00:14)
[2017-08-19] MEDS: Ondansetron 4 MG/2 ML VIAL IVP PRN ×3 (00:14→15:19)
[2017-08-19] MEDS ORDERED: *HR* Promethazine 25 MG/ML VIAL IVP ONE (01:21)
[2017-08-19] MEDS: *HR* Promethazine 25 MG/ML VIAL IVP PRN ×4 (03:23→23:34)
[2017-08-19] MEDS: *HR* HYDROcodone/Acet 5/325 mg TABLET PO PRN ×3 (05:32→23:33)
[2017-08-19] MEDS: MetroNIDAZOLE 500 MG/100 ML 500 MG/100 ML BAG IVPB SCH ×3 (05:35→21:19)
[2017-08-19] MEDS: *HR* Enoxaparin 40 MG/0.4 ML SYRINGE SQ SCH (05:39)
[2017-08-19] MEDS: Fluticasone Propionate Nasal 50 MCG/SPRAY BOTTLE NS SCH (08:41)
[2017-08-19] MEDS: amLODIPine 5 MG TABLET PO SCH (09:03)
[2017-08-19] MEDS: Losartan/HCTZ 50-12.5 TABLET PO SCH (09:03)
[2017-08-19] MEDS: Loratadine 10 MG TABLET PO SCH (09:03)
[2017-08-19] MEDS: 0.9 % Sodium Chloride 1,000 ML IVC SCH ×3 (09:04→12:49)
[2017-08-19 09:12] LABS: Hematocrit 44.1 % (35.3-44.9); Hemoglobin 14.7 g/dL (11.5-15.4); Mean Corpuscular HGB Conc 33.3 g/dL (31.6-35.5); Mean Corpuscular Hemoglobin 28.8 pg (28.0-33.3); Mean Corpuscular Volume 86.3 fL (83.0-100.0); Mean Platelet Volume 10.2 fL (9.4-12.4); Platelet Count 300 K/mcL (140-400); Red Blood Count 5.11 M/mcL (3.82-4.97); Red Cell Distribution Width 13.8 % (11.5-14.5)
[2017-08-19] MEDS: ALPRAZolam 1 MG TABLET PO PRN (09:14)
[2017-08-19 09:33] LABS: BUN/Creatinine Ratio 21 (6-26); Blood Urea Nitrogen 12 mg/dL (6-20); Calcium 8.6 mg/dL (8.6-10.3); Carbon Dioxide 20 mEq/L (23-29); Chloride 110 mEq/L (98-107); Glucose 99 mg/dL (70-105); Osmolality,Calculated 282 (280-300); Potassium 3.5 mEq/L (3.5-5.1); Sodium 136 mEq/L (136-145); eGFR For African Americans > 60 (> 60); eGFR For Non-African Americans > 60 (> 60)
[2017-08-19] MEDS ORDERED: Metoclopramide 10 MG/2 ML VIAL IVP ONE (10:22)
[2017-08-19] MEDS ORDERED: Ketorolac 30 MG/ML VIAL IVP ONE (10:22)
[2017-08-19 11:07] LABS: INR 1.2; Prothrombin Time 12.5 Seconds (9.4-12.1)
--- NOTE | 2017-08-19 11:16 | Internal Med Progress Note ---
Date of Encounter: 08/19/17 Time of Encounter: 11:13 - Assessment and plan (1) Rectosigmoiditis Current Visit: Yes Status: Acute Assessment and plan: Presented to ER with abdominal pain. ABD CT concerning for rectosigmoid colitis. Patient has history of ulcerative colitis in family. C-scope planned . Cont IV flagyl, cipro. GI following. Further recommendations pending C scope. (2) SIRS (systemic inflammatory response syndrome) Current Visit: Yes Status: Acute Assessment and plan: Meets SIRS criteria with fever and source of infection as colitis, UTI. Cont to have intermittent fevers. Repeat CXR nonacute. Continue IV fluids, IV ATB. Aggressive IS. (3) UTI (urinary tract infection) Current Visit: Yes Status: Acute Assessment and plan: UA indicative of UTI. Urine culture with pansensitive Escherichia coli. Cont ceftriaxone-day 3 Qualifiers: Urinary tract infection type: site unspecified Hematuria presence: without hematuria Qualified Code(s): N39.0 - Urinary tract infection, site not specified (4) Hypokalemia Current Visit: Yes Status: Acute Assessment and plan: K 3.0. Normalized with replacement. K 3.5 on 08/19 (5) Lethargy Current Visit: Yes Status: Acute Assessment and plan: lethargy noted on 08/16 exam. Suspect secondary to acute illness and polypharmacy. Patient is on multiple sedating/psychiatric medications. Holding home baclofen. Home Xanax decreased to twice a day. Mentation improved as of (6) COPD (chronic obstructive pulmonary disease) Current Visit: Yes Status: Chronic Assessment and plan: per hx. CXR without nonacute. No evidence of acute exacerbation. Qualifiers: Qualified Code(s): J44.9 - Chronic obstructive pulmonary disease, unspecified (7) HTN (hypertension) Current Visit: Yes Status: Acute Assessment and plan: per hx. BP controlled requiring PRN hydralazine. Continue home ARB/HCTZ, add amlodipine. Monitor BP and titrate PRN. BP improved on 08/19 exam Qualifiers: Hypertension type: essential hypertension Qualified Code(s): I10 - Essential (primary) hypertension (8) Migraine Current Visit: Yes Status: Acute Assessment and plan: per hx. Takes Imitrex at home. Reports worse than usual migraine in 08/19. No red flags/warning signs. Trial headache cocktail Qualifiers: Migraine type: without aura Status migrainosus presence: without status migrainosus Intractability: not intractable Qualified Code(s): G43.009 - Migraine without aura, not intractable, without status migrainosus (9) DVT prophylaxis Current Visit: Yes Status: Acute Assessment and plan: lovenox - Subjective Interval history: Seen and examined at bedside. She is c/o headache; located to right neck and radiates up to right side of head. Nothing makes better or worse. Still with ABD pain that is worse with movement. Has been NPO since 0700 - Constitutional Vitals: Temp Pulse Resp BP Pulse Ox 98.9 F 64 16 115/70 96 08/19/17 07:10 08/19/17 07:10 08/19/17 07:10 08/19/17 07:10 08/19/17 07:10 General appearance: Present: mild distress, A&O X 3, answers questions appropriately - Head Head exam: Present: atraumatic, normocephalic - Eye Eye exam: Present: PERRL, conjuntiva pink, sclera anicteric Pupils: Present: PERRL - Neck Neck exam general surgery: Present: supple, trachea midline. Absent: lymphadenopathy - Respiratory Respiratory exam: Present: CTAB. Absent: accessory muscle use, rales, rhonchi, wheezes - Cardiovascular Cardiovascular exam: Present: RRR, +S1, +S2. Absent: diastolic murmur, gallop, rubs, systolic murmur - GI/Abdominal GI/Abdominal exam: Present: normal bowel sounds, soft, tenderness, no peritoneal signs. Absent: distended - Extremities Exam Extremities exam: Present: warm, radial pulses palpable and symmetrical. Absent : calf tenderness, cyanotic, pedal edema - Neurological Exam Neurological exam: Present: CN II-XII intact, oriented X3, no focal deficits. Absent: pronater drift, facial droop, speech deficit - Skin Skin exam: Present: dry, intact Internal Medicine: Result - Labs CBC & Chem 7: 08/19/17 08:59 08/19/17 08:59 Labs: Short CBC 08/18/17 08/19/17 Range/Units 12:35 08:59 WBC 12.3 H 13.3 H (4.3-11.1) K/mcL Hgb 14.2 14.7 (11.5-15.4) g/dL Hct 43.2 44.1 (35.3-44.9) % Plt Count 274 300 (140-400) K/mcL BMP 08/19/17 08:59 Sodium 136 Potassium 3.5 Chloride 110 H Carbon Dioxide 20 L BUN 12 Creatinine 0.56 L Glucose 99 Calcium 8.6 - ABG Interpretation ABG results: PT/INR, D-dimer PT 12.5 Seconds (9.4-12.1) H 08/19/17 10:24 - Impressions Impressions Chest X-Ray 08/18/17 11:06 IMPRESSION: Decreased inspiratory effort compared to prior resulting accentuation of lung markings. No focal consolidation. D/ / Caesar Mora MD / Caesar Mora MD Interpreting Provider: Caesar Mora MD Consult Discharge Plan - Plan Referrals: Seth Mccurdy DO [Primary Care Provider] -
--- NOTE | 2017-08-19 13:38 | Anesthesia Evaluation PreOp ---
Date of Encounter: 08/19/17 Time of Encounter: 13:30 - Past History Planned Operation: EGD/colonoscopy Cardiac History: HTN Pulmonary History: Denies Any Significant HX CALL MANAGER History: Denies Any Significant HX Other Medical History: Denies Any Significant HX Anesthesia History: No Prior Anesthetic Complications, Past Anesthesia Alcohol Use: occasionally Drug use: none Medications and Allergies ALPRAZolam [Xanax 1 MG Tablet] 1 mg PO TID 08/15/17 [History] Albuterol Sulfate [Proair Hfa] 2 puff IH Q4H PRN 08/15/17 [History] Baclofen [Lioresal] 10 mg PO HS 08/15/17 [History] Ciprofloxacin [Cipro] 500 mg PO BID #20 tablet 08/15/17 [Rx] Citalopram Hydrobromide [Celexa] 60 mg PO DAILY 08/15/17 [History] Fexofenadine HCl 180 mg PO DAILY 08/15/17 [History] Fluticasone Propionate Nasal [Flonase] 50 mcg NS DAILY 08/15/17 [History] Gabapentin [Neurontin] 600 mg PO TID PRN 08/15/17 [History] Losartan/HCTZ [Hyzaar 50-12.5 Tablet] 1 each PO DAILY 08/15/17 [History] Naproxen Sodium [Naproxen Sodium Ds] 550 mg PO BID 08/15/17 [History] Promethazine [Phenergan] 25 mg RC BID PRN #12 supp.rect 08/15/17 [Rx] SUMAtriptan succinate [Imitrex] 25 mg PO Q2H PRN MDD 50 mg 08/15/17 [History] Tiotropium Br/Olodaterol HCl [Stiolto Respimat Inhal [place]] 2 puff IH DAILY 02/22 [History] Topiramate [Topamax] 50 mg PO HS 08/15/17 [History] hydrOXYzine HCl [Hydroxyzine HCl] 25 mg PO TID PRN 08/15/17 [History] metroNIDAZOLE [Flagyl] 500 mg PO TID #30 tablet 08/15/17 [Rx] 3 Allergy/AdvReac Type Severity Reaction Status Date / Time No Known Allergies Allergy Verified 08/15/17 14:01 - Meds/Allergy Pre-op Review Medications Reviewed: Yes Allergies Reviewed: Yes Beta Blockers on Current Med List: No Anesthesia Results - Labs 08/19/17 08:59 08/19/17 08:59 Anesthesia Exam Selected Entries 08/19/17 12:26 08/19/17 13:05 Temperature 97.5 F L Pulse Rate 77 Respiratory Rate 18 Blood Pressure 118/74 O2 Sat by Pulse Oximetry 97 Weight: 85 kg NPO (# of Hours): over 8 hours - HEENT Pupil (Motor): Pupils equal Mallampati: II Teeth: Normal Oral Opening: Greater than 3 - Cardiac Rhythm: Regular Murmur: None - Pulmonary Breath Sounds: bilateral Clear Respiratory Effort: Symmetrical Anesthesia Assess/Plan ASA Score: 2 Modified Devils Elbow Scale for Level of Consciousness: Cooperative, oriented, and tranquil Anesthetic Plan: MAC Monitoring Plan: Standard Monitors Recovery Plan: Other (Discussed MAC anesthesia. Agreed to proceed.)
[2017-08-19] MEDS ORDERED: Propofol 500 MG/50 ML INFUS..BTL ONE (13:55)
[2017-08-19] MEDS: cefTRIAXone 1,000 MG in Water for inj. (sterile) 20 ML 10 ML IVP SCH (16:28)
--- NOTE | 2017-08-19 17:39 | Electrocardiograph Report ---
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
--- NOTE | 2017-08-19 17:45 | Gastroenterology Consult Note ---
<Charline Chamorro M - Last Filed: 08/19/17 17:41> Date of Encounter: 08/19/17 Time of Encounter: 11:50 - Assessment and plan (1) Colitis Current Visit: Yes Status: Acute Assessment and plan: Pt was prepped last night, discussed risks and benefits and she agreed to proceed with colonoscopy. Colonoscopy showed 7 mm polyp, internal hemorrhoids, normal colonic mucosa throughtout. Await pathology needs repeat colon in 5 years for surveillance. (2) Nausea and vomiting Current Visit: Yes Status: Acute Assessment and plan: EGD today showed LA grade D esophagitis, gastritis, and duodenitis. She needs PPI bid, no NsAIDS, needs repeat EGD in 2 months. - Time Spent With Patient Total time spent is greater than 50% in coordination of care (as documented) at patient's floor/unit and/or counseling patient: GI History of Present Illness - Data of Consult Patient: new to practice Consult date: 08/19/17 Requesting Physician: Kell Gordon CNP - Consult Narrative Reason for consult: colitis History of present illness: Ms. Espinoza is a 42 year old female Ms. Espinoza is a 42 year old female with known PMH of HTN, COPD, not on home O2 dependent, Hep C antibodies (quant not detected), chronic tobacco dependence and anxiety. She presented to the emergency department with abdominal pain, intractable nausea and vomiting x 2 weeks. She states she has abdominal pain that started on the left side of the abdomen but now is located in the upper center portion of her abdomen. She states that it is been hurting all week but was unable to get in to see the doctor. She reports persistant vomiting and has only been [place] to keep down sips of spite. She reports diarrhea today no bleeding or tarry stools. Hemoglobin is 14.2 WBCs were 15.7 Down to 12.3 LFTs are within normal limits she was started on Flagyl and Cipro. Colonoscopy: denies EGD: 2008 peptic ulcers per pt NSAIDS/ASA: naproxen Anticoagulants: denies Past Med Surg Social Fam HX - Past Medical History Medical history: asthma, diabetes, hypertension Psychiatric history: anxiety - Past Surgical History Surgical History: , other - Social History Smoking Status: Current every day smoker Smokeless Tobacco Status: No Alcohol use: occasionally Drug use: none - Family History Mother Hx Family Genitourinary Disorders: Yes (kidney problems) Hx Family Endocrine Disorder: Yes (DM) Father Hx Family Cardiac Disorders: Yes ([place]) Hx Family Respiratory Disorders: Yes Review of Systems: GI: as per [place] [facility]: denies fever, has some chills EYES: denies yellow discoloration ENT: denies pain with swallowing or difficulty swallowing CARDIO: denies chest pain, palpitations RESP: Shortness of breath with exertion : denies change in color of urine NEURO: weakness HEME: Denies any bruising MS: chronic back and joint pain DERM: denies rash or itching PSYCH: history of anxiety or depression - Constitutional Vitals: Temp Pulse Resp BP Pulse Ox 98.2 F 75 16 136/80 99 08/19/17 15:02 08/19/17 15:02 08/19/17 15:02 08/19/17 15:02 08/19/17 15:02 Exam: CONSTITUTIONAL:~alert, no acute distress.~HEAD:~normocephalic.~EYES:~no jaundice.~NECK:~no obvious swelling.~HEART:~regular rate and rhythm, no murmurs. ~LUNGS:~bilateral good air entry.~ABDOMEN:~non distended, soft, tender left upper and lower quadrants, no masses palpable, no organomegaly.~RECTAL EXAM:~ Deferred.~EXTREMITIES:~no clubbing, cyanosis or edema.~SKIN:~no stigmata of chronic liver disease.~NEUROLOGIC:~no obvious focal defect.~~~~ Results - Labs CBC & Chem 7: 08/19/17 08:59 08/19/17 08:59 Labs: Last Result Calcium 8.6 mg/dL (8.6-10.3) 08/19/17 08:59 Troponin I < 0.03 ng/mL (< 0.04) 08/15/17 15:31 Entire Visit Hgb 14.7 g/dL (11.5-15.4) 08/19/17 08:59 Hct 44.1 % (35.3-44.9) 08/19/17 08:59 PT 12.5 Seconds (9.4-12.1) H 08/19/17 10:24 Total Bilirubin 0.3 mg/dL (0.3-1.0) 08/15/17 15:31 AST 12 Units/L (13-39) L 08/15/17 15:31 ALT 9 Units/L (7-52) 08/15/17 15:31 Lipase 22 Units/L (11-82) 08/15/17 15:31 - ABG ABG results: PT/INR, D-dimer PT 12.5 Seconds (9.4-12.1) H 08/19/17 10:24 Consult Discharge Plan - Plan Referrals: Seth Mccurdy DO [Primary Care Provider] - <Liz Addison - Last Filed: 08/19/17 22:10> Date of Encounter: 08/19/17 Time of Encounter: 13:00 - Time Spent With Patient Total time spent is greater than 50% in coordination of care (as documented) at patient's floor/unit and/or counseling patient: GI History of Present Illness - Data of Consult Requesting Physician: Kell Gordon CNP - Consult Narrative History of present illness: Ms. Espinoza is a 42 year old female - Constitutional Vitals: Temp Pulse Resp BP Pulse Ox 98.2 F 102 14 116/73 96 08/19/17 19:25 08/19/17 19:25 08/19/17 19:25 08/19/17 19:25 08/19/17 19:25 Results - Labs CBC & Chem 7: 08/19/17 08:59 08/19/17 08:59 Labs: Last Result Calcium 8.6 mg/dL (8.6-10.3) 08/19/17 08:59 Troponin I < 0.03 ng/mL (< 0.04) 08/15/17 15:31 Entire Visit Hgb 14.7 g/dL (11.5-15.4) 08/19/17 08:59 Hct 44.1 % (35.3-44.9) 08/19/17 08:59 PT 12.5 Seconds (9.4-12.1) H 08/19/17 10:24 Total Bilirubin 0.3 mg/dL (0.3-1.0) 08/15/17 15:31 AST 12 Units/L (13-39) L 08/15/17 15:31 ALT 9 Units/L (7-52) 08/15/17 15:31 Lipase 22 Units/L (11-82) 08/15/17 15:31 - ABG ABG results: PT/INR, D-dimer PT 12.5 Seconds (9.4-12.1) H 08/19/17 10:24 - Attending Attestation I examined this patient and my medical decision-making was reviewed with the BAIL AGENT. I agree with the documented findings, disposition and treatment plan as described except to the extent set forth below. 42 edouard old female with LLQ apin and epigastric pain. Rec:EGD colon today
[2017-08-19] MEDS: Topiramate 25 MG TABLET PO SCH (21:18)
[2017-08-20] MEDS: ALPRAZolam 1 MG TABLET PO PRN (04:40)
[2017-08-20] MEDS: MetroNIDAZOLE 500 MG/100 ML 500 MG/100 ML BAG IVPB SCH ×2 (04:40→13:51)
[2017-08-20] MEDS: Ondansetron 4 MG/2 ML VIAL IVP PRN ×3 (04:40→22:05)
[2017-08-20 05:14] LABS: Hematocrit 44.6 % (35.3-44.9); Hemoglobin 14.7 g/dL (11.5-15.4); Mean Corpuscular Hemoglobin 28.5 pg (28.0-33.3); Mean Corpuscular Volume 86.6 fL (83.0-100.0); Mean Platelet Volume 10.1 fL (9.4-12.4); Platelet Count 294 K/mcL (140-400); Red Blood Count 5.15 M/mcL (3.82-4.97); Red Cell Distribution Width 13.8 % (11.5-14.5)
[2017-08-20] MEDS: 0.9 % Sodium Chloride 1,000 ML IVC SCH ×2 (06:03→19:52)
[2017-08-20] MEDS: *HR* Enoxaparin 40 MG/0.4 ML SYRINGE SQ SCH (06:14)
[2017-08-20] MEDS: Losartan/HCTZ 50-12.5 TABLET PO SCH (08:27)
[2017-08-20] MEDS: amLODIPine 5 MG TABLET PO SCH (08:27)
[2017-08-20] MEDS: Loratadine 10 MG TABLET PO SCH (08:27)
[2017-08-20] MEDS: Fluticasone Propionate Nasal 50 MCG/SPRAY BOTTLE NS SCH (08:28)
[2017-08-20] MEDS: *HR* Promethazine 25 MG/ML VIAL IVP PRN ×2 (08:33→14:57)
[2017-08-20] MEDS: *HR* HYDROcodone/Acet 5/325 mg TABLET PO PRN ×3 (08:33→23:05)
--- NOTE | 2017-08-20 10:52 | Anesthesia Evaluation Post Op ---
Date of Encounter: 08/20/17 Time of Encounter: 10:51 - Vital Signs Vital Signs: Vital Signs/O2 Sat, Most Current Temp Pulse Resp BP Pulse Ox 98.9 F 70 16 148/87 95 08/20/17 06:54 08/20/17 06:54 08/20/17 06:54 08/20/17 06:54 08/20/17 06:54 - Lungs Lungs: Clear Ascult./Percussion - Airway Airway: Non-obstructed - Cardiovascular Regular Rate - Mental Status Mental Status: Alert & Oriented, Answers Appropriately - Nausea Vomiting Nausea Vomiting: Not Present
--- NOTE | 2017-08-20 13:45 | Infectious Disease Consult ---
Date of Encounter: 08/20/17 Time of Encounter: 13:43 Assessment and Plan (1) Sepsis Status: Acute Assessment and plan: The patient had two SIRS criteria on admission and developed fever after admission. Likely secondary to UTI. Improved. Tachycardia and fevers have resolved. She continues to have leukocytosis, but not sure that it is related to infection. Blood cultures drawn 08/18/17 are NGTD x 2 sets. Qualifiers: Sepsis type: Escherichia coli Qualified Code(s): A41.51 - Sepsis due to Escherichia coli [E. coli] (2) UTI (urinary tract infection) Status: Acute Assessment and plan: Causative organism E. coli. Treated with 6 days of IV Cipro and 4 days of Rocephin. Resolved. Discontinue antibiotics and observe. Qualifiers: Urinary tract infection type: site unspecified Hematuria presence: without hematuria Qualified Code(s): N39.0 - Urinary tract infection, site not specified (3) Leukocytosis Status: Acute Assessment and plan: WBC elevated on admission and continues to be elevated. Etiology unclear: Infection vs. Autoimmune/Irritable bowl disease. Evidence of granulomatous disease on CT scan. Check Flu PCR. Repeat blood cultures x 2 sets now. Continue to trend. Qualifiers: Leukocytosis type: unspecified Qualified Code(s): D72.829 - Elevated white blood cell count, unspecified (4) Abdominal pain Status: Acute Assessment and plan: Likely secondary to esophagitis, duodenitis, gastritis and UTI. LLQ abdominal pain likely related to UTI has resolved. Continue to have epigastric and LUQ pain. Status post EGD that showed esophagitis, gastritis and duodenitis. CT scan showed findings consistent with rectosigmoid colitis, but colonoscopy did not show evidence of this. PPI BID per GI recommendations. Discontinue Cipro and Flagyl. Consider possibility of Crohn's above the colon as the patient does have a family history. Further follow-up per GI. Qualifiers: Abdominal location: generalized Qualified Code(s): R10.84 - Generalized abdominal pain (5) Granulomatous disease Status: Acute Assessment and plan: CT scan of the abdomen and pelvis showed granulomatous disease in the LLL and possibly in the spleen. Etiology unclear: Sarcoid vs. TB. (low index of suspicion based on clinical picture), histoplasmosis vs. other. Get CT of the chest to evaluate. Check Quantiferon. Will discuss with radiology. (6) Nausea and vomiting Status: Resolved Assessment and plan: Likely secondary to esophagitis/gastritis/duodenitis. May have also had an element of gastroenteritis. Appears improved. Management per the primary team. Qualifiers: Vomiting type: unspecified Vomiting Intractability: unspecified Qualified Code(s): R11.2 - Nausea with vomiting, unspecified (7) Adrenal mass Status: Acute Assessment and plan: Etiology unclear. Follow-up as an outpatient. (8) Tobacco dependence Status: Chronic Infectious Disease HPI - Data of Consult Patient: new to practice Consult date: 08/20/17 Requesting Physician: Kell Gordon CNP Primary Care Provider: Ashly Puente - Consult Narrative Reason for consult: Leukocytosis History of present illness: Ms. Espinoza is a 42 year old female with past medical history of borderline diabetes, hypertension, endometriosis, and COPD. The patient was managed the hospital August 15 for colitis and intractable nausea and vomiting. We are consulted August 20 for recommendations regarding persistent leukocytosis. The patient is a 42-year-old female with past medical history as stated above. The patient states that approximately 6 days prior to presentation to the ER she began to experience severe left-sided abdominal pain, dysuria, nausea, and vomiting. She states the pain migrated to the epigastric and left upper quadrant and she presented to the emergency department. Upon arrival, the patient was tachycardic and have leukocytosis with neutrophilic predominance. LFTs and lipase were negative. She is CT the abdomen and pelvis that showed findings consistent with colitis of the rectosigmoid colon and a right adrenal mass. She also had a chest x-ray that was negative. There is also incidental findings of left lower lobe granulomatous disease. Urinalysis was positive and the culture grew Escherichia coli. She was noted to the hospital for further evaluation because they cannot get her nausea under control. She was started on IV Cipro and Flagyl and Rocephin was added once her urine culture came back. After admission, the patient began to spike fevers with a MAXIMUM TEMPERATURE of 102. Blood cultures were obtained on August 18 better or no growth to date. Gastroenterology was consulted and performed an EGD and colonoscopy on the patient. The EGD revealed findings consistent with esophagitis, duodenitis, gastritis. The colonoscopy revealed one nonbleeding polyp and internal hemorrhoids. Despite antibiotic treatment, the patient continues to have leukocytosis. We've been asked to evaluate and make further recommendations. During my exam today, the patient states that overall she feels okay. She currently denies any fevers or chills or rigors. She reports some intermittent headaches that are chronic for her. She denies any congestion, earache, or sore throat. She denies any chest pain or shortness of breath, but does report some reflux. She port's that sometimes when she eats she feels like her food gets stuck and doesn't go down into her stomach all the way. She reports frequent reflux and burning in her chest. She states it is difficult to eat because of her symptoms. She denies any diarrhea or abdominal pain at this time. She states the dysuria has resolved. She did report some urinary urgency, but states this is improved as well. She denies any pain or back or extremities. She denies oral thrush or skin lesions. The patient lives at home with her and children. She denies any recent sick contacts. She does not work outside the home. She does smoke a pack of cigarettes per day, denies any alcohol or illicit drug use. CC: Kell Gordon, RENALDO Past Med Surg Social Fam HX - Past Medical History Attestation: Yes The following information was validated with the patient. Source: patient, old records reviewed, nursing notes reviewed Medical history: asthma, COPD, diabetes (Borderline), hypertension Psychiatric history: anxiety - Past Surgical History Surgical History: , other (Tubal ) - Social History Smoking Status: Current every day smoker Packs per day: 1 Smokeless Tobacco Status: No Alcohol use: occasionally Drug use: none Occupational status: unemployed Current living situation: Home, With Family Activity Level: Independent ambulation Recent Out of Country Travel Within the Last 8 Weeks: No Exposure or Possible Exposure to Illness During Travel: No - Family History Mother Hx Family Genitourinary Disorders: Yes (kidney problems) Hx Family Endocrine Disorder: Yes (DM) Father Hx Family Cardiac Disorders: Yes ([place]) Hx Family Respiratory Disorders: Yes Infectious Disease-CN:Meds ALPRAZolam [Xanax 1 MG Tablet] 1 mg PO TID 08/15/17 [History] Albuterol Sulfate [Proair Hfa] 2 puff IH Q4H PRN 08/15/17 [History] Baclofen [Lioresal] 10 mg PO HS 08/15/17 [History] Ciprofloxacin [Cipro] 500 mg PO BID #20 tablet 08/15/17 [Rx] Citalopram Hydrobromide [Celexa] 60 mg PO DAILY 08/15/17 [History] Fexofenadine HCl 180 mg PO DAILY 08/15/17 [History] Fluticasone Propionate Nasal [Flonase] 50 mcg NS DAILY 08/15/17 [History] Gabapentin [Neurontin] 600 mg PO TID PRN 08/15/17 [History] Losartan/HCTZ [Hyzaar 50-12.5 Tablet] 1 each PO DAILY 08/15/17 [History] Naproxen Sodium [Naproxen Sodium Ds] 550 mg PO BID 08/15/17 [History] Promethazine [Phenergan] 25 mg RC BID PRN #12 supp.rect 08/15/17 [Rx] SUMAtriptan succinate [Imitrex] 25 mg PO Q2H PRN MDD 50 mg 08/15/17 [History] Tiotropium Br/Olodaterol HCl [Stiolto Respimat Inhal [place]] 2 puff IH DAILY 02/22 [History] Topiramate [Topamax] 50 mg PO HS 08/15/17 [History] hydrOXYzine HCl [Hydroxyzine HCl] 25 mg PO TID PRN 08/15/17 [History] metroNIDAZOLE [Flagyl] 500 mg PO TID #30 tablet 08/15/17 [Rx] 3 Allergy/AdvReac Type Severity Reaction Status Date / Time No Known Allergies Allergy Verified 08/15/17 14:01 All systems: reviewed and no additional remarkable complaints except as stated Exam - Constitutional Vitals: Temp Pulse Resp BP Pulse Ox 98.3 F 80 14 112/71 98 08/20/17 11:41 08/20/17 11:41 08/20/17 11:41 08/20/17 11:41 08/20/17 11:41 General appearance: average body habitus, cooperative, no acute distress - Head Head exam: Present: atraumatic, normal inspection, normocephalic - Eye Eye exam: Present: EOMI, normal appearance, PERRL Pupils: Present: normal accommodation - ENT ENT exam: Present: mucous membranes moist - Neck Neck exam: Present: normal inspection - Respiratory Respiratory exam: Present: CTAB. Absent: rales, respiratory distress, rhonchi, wheezes - Cardiovascular Cardiovascular exam: Present: RRR, +S1, +S2 - GI/Abdominal GI/Abdominal exam: Present: normal bowel sounds, soft, tenderness (Epigastric, LUQ). Absent: distended - Extremities Exam Extremities exam: Present: normal inspection. Absent: joint swelling, pedal edema, tenderness - Back Exam Back exam: Present: normal inspection. Absent: CVA tenderness (L), CVA tenderness (R) - Neurological Exam Neurological exam: Present: alert, oriented X3, no focal deficits - Psychiatric Psychiatric exam: Present: normal affect, normal mood - Skin Skin exam: Present: dry, intact, normal color, warm Infectious Disease CN: Results - Labs CBC & Chem 7: 08/20/17 04:55 08/19/17 08:59 Cultures: Cultures 08/18/17 12:30 Blood Culture - Preliminary Peripheral Venipuncture No growth. 08/18/17 12:35 Blood Culture - Preliminary Peripheral Venipuncture No growth. Serology: Serology 08/15/17 Range/Units 16:17 Urine Color Yellow (Yellow) Urine Clarity Cloudy A (Clear) Urine pH 7.5 (5.0-8.0) pH Units Ur Specific [place] 1.022 (1.010-1.025) Urine Protein 30 H (Neg-Trace) mg/dL Urine Glucose (UA) Normal (Normal) mg/dL Urine Ketones Negative (Negative) mg/dL Urine Blood Small H (Negative) Urine Nitrite Positive A (Negative) Urine Bilirubin Negative (Negative) Urine Urobilinogen Normal (Normal) mg/dL Ur Leukocyte Esterase Small H (Negative) Urine Microscopic RBC 3-5 H (0-3) per hpf Urine Microscopic WBC 15-30 H (0-3) per hpf Ur Squamous Epith Cells Moderate H (None-Few) per lpf Amorphous Sediment Few (Few) Urine Bacteria Many H (None-Few) per hpf Hyaline Casts Few (None-Few) per lpf Ur Culture Indicated? YES A (NO) Consult Discharge Plan - Plan Referrals: Seth Mccurdy DO [Primary Care Provider] - - Attending Attestation I examined this patient and my medical decision-making was reviewed with the Resident Physician. I agree with the documented findings, disposition and treatment plan as described except to the extent set forth below. This is an addendum to original report dictated by Angela brown CNP. Please refer to Precious hayes for full detail. Patient is a 42-year-old woman with a past medical history significant for borderline diabetes mellitus type 2, hypertension, history of endometriosis and COPD secondary to tobacco use states that about 6 days prior to admission she started having severe left-sided abdominal pain, dysuria, nausea and vomiting. Patient states that she was so nauseated and couldnt keep anything down. Patient initially thought she was having a kidney stone because shes had similar pain like this before. In the emergency department patient was noted to be tachycardic and had leukocytosis with neutrophilic predominance. Rest of the labs including LFTs lipase amylase were unremarkable. Patient has CT abdomen pelvis which showed findings consistent with colitis of the rectosigmoid colon and the right adrenal mass. Patient also had incidental granulomatosis lesions on the left lower lung and the spleen. Patient was started on Cipro and Flagyl and Rocephin. While in the hospital patient had a MAXIMUM TEMPERATURE of 102. Patient was seen by GI underwent an EGD and colonoscopy. The EGD revealed esophagitis, duodenitis and gastritis. As for the colonoscopy showed a polyp and some internal hemorrhoids but otherwise unremarkable. We were asked to evaluate the patient for persistent leukocytosis. Currently patient laying in bed with at bedside that. Patient appears very anxious. Patient is concerned that she has been told anything since admission. I tried to explain to her that some test date time to come back. Patients brother has Crohns disease. I asked the patient and see if she had recurrent infections and she states that she does get URI infections frequently but she attributed it to her COPD and chronic tobacco abuse. I asked if she had a CT of the chest before and she denied. Physical exam with the patient is really unremarkable. At this point I dont know what causing the patient to have persistent leukocytosis and to have what appears to be granulomatosis disease in the lungs and the liver. Patient has never been told that she had any can autoimmune or immune disease. Patient also has family history of Crohns disease. At this point. Antibiotics unobserved. I will get a CT of the lungs. Also await pathology report from the EGD. Check QuantiFERON. Based on the CT finding of the chest we might have to do a biopsy versus fungal serology workup versus other. I will not start all this workup until the CT is done which is scheduled for later today.
--- NOTE | 2017-08-20 15:09 | Internal Med Progress Note ---
Date of Encounter: 08/20/17 Time of Encounter: 09:10 - Assessment and plan (1) Rectosigmoiditis Current Visit: Yes Status: Acute Assessment and plan: Per CT. EGD yesterday showed LA grade D esophagitis with no bleeding, she is moderate inflammation characterized by edema, or erosions were found in the duodenal bulb. Scattered, moderate inflammation characterized by adherent blood , edema, erythema and friability was found in the gastric antrum. Biopsies were obtained. Impressions LA grade D reflux esophagitis, duodenitis, gastritis. GI recommends PPI twice a day, no NSAIDs, EGD repeat in 2 months. Colonoscopy 08/19/17 showed internal hemorrhoids, 7 mm nonbleeding polyp in the sigmoid colon, normal ileum. Repeat in 5 years. Patient has been able to tolerate clear liquid diet for the last 24 hours without vomiting or diarrhea. She still complains of nausea. Advance diet as tolerated Continue anti-emetics Follow-up with GI as mentioned above. (2) SIRS (systemic inflammatory response syndrome) Current Visit: Yes Status: Acute Assessment and plan: Meets SIRS criteria with fever and source of infection as colitis, UTI, on arrival. Pt has been been afebrile for > 48 hours. Repeat CXR nonacute. Continue IV fluids, IV ATB. ID on board, following. I appreciate their recommendations and consultation. (3) UTI (urinary tract infection) Current Visit: Yes Status: Acute Assessment and plan: UA indicative of UTI. Urine culture with pansensitive Escherichia coli. Pt is being treated with Cipro and Rocephin IV, discontinue and observe. Pt asymptomatic. Qualifiers: Urinary tract infection type: site unspecified Hematuria presence: without hematuria Qualified Code(s): N39.0 - Urinary tract infection, site not specified (4) Anxiety Current Visit: Yes Status: Chronic Assessment and plan: Chronic. Continue home medications. (5) COPD (chronic obstructive pulmonary disease) Current Visit: Yes Status: Chronic Assessment and plan: Chronic. NO acute exacerbation. Continue albuterol inhaler per home schedule. Chest x-ray is negative. Qualifiers: COPD type: unspecified COPD Qualified Code(s): J44.9 - Chronic obstructive pulmonary disease, unspecified (6) Nausea and vomiting Current Visit: Yes Status: Resolved Assessment and plan: Patient reports that she is able to keep clear liquids down at this time, specifically red Jell-O. Patient states that over the last 9-10 days, this is the first 24 hours that she has not had any vomiting or diarrhea. Nausea remains, there is better. Advance diet as tolerated Continue antiemetics EGD showed grade D esophagitis, gastritis, duodenitis. Continue PPI twice daily. No NSAIDs. Qualifiers: Vomiting type: unspecified Qualified Code(s): R11.2 - Nausea with vomiting , unspecified (7) DVT prophylaxis Current Visit: Yes Status: Acute Assessment and plan: SQ Lovenox, encourage early ambulation. - Time Spent With Patient less than 15 minutes - Subjective Interval history: Pt was seen and assessed at bedside at 0910. She states that she has been able to keep down red jello and po fluids for the last 24 hours, no vomiting or diarrhea for 24 hours. She still has nausea, but it is better. She reports that she is sore from lying in bed all day and that she becomes more nauseated with standing. - Constitutional Vitals: Temp Pulse Resp BP Pulse Ox 98.3 F 80 14 112/71 98 08/20/17 11:41 08/20/17 11:41 08/20/17 11:41 08/20/17 11:41 08/20/17 11:41 General appearance: Present: mild distress, A&O X 3, pleasant, no acute distress , answers questions appropriately - Head Head exam: Present: atraumatic, normal inspection, normocephalic - Eye Eye exam: Present: normal appearance, conjuntiva pink, sclera anicteric - Neck Neck exam general surgery: Present: normal inspection, supple, trachea midline. Absent: lymphadenopathy, tenderness - Respiratory Respiratory exam: Present: CTAB. Absent: accessory muscle use, rales, rhonchi, wheezes - Cardiovascular Cardiovascular exam: Present: RRR, +S1, +S2. Absent: diastolic murmur, gallop, rubs, systolic murmur - GI/Abdominal GI/Abdominal exam: Present: normal bowel sounds, soft, no peritoneal signs. Absent: distended, hepatomegaly, tenderness - Extremities Exam Extremities exam: Present: normal capillary refill, normal inspection, warm, radial pulses palpable and symmetrical. Absent: calf tenderness, cyanotic, pedal edema, tenderness - Neurological Exam Neurological exam: Present: alert, oriented X3, no focal deficits. Absent: facial droop, speech deficit - Skin Skin exam: Present: dry, intact, normal color, warm. Absent: rash Internal Medicine: Result - Labs CBC & Chem 7: 08/20/17 04:55 08/19/17 08:59 Labs: Short CBC 08/20/17 Range/Units 04:55 WBC 14.0 H (4.3-11.1) K/mcL Hgb 14.7 (11.5-15.4) g/dL Hct 44.6 (35.3-44.9) % Plt Count 294 (140-400) K/mcL - ABG Interpretation ABG results: PT/INR, D-dimer PT 12.5 Seconds (9.4-12.1) H 08/19/17 10:24 Consult Discharge Plan - Plan Referrals: Seth Mccurdy DO [Primary Care Provider] -
[2017-08-20 18:02] LABS: Influenza A PCR Negative (Negative); Influenza B PCR Negative (Negative)
[2017-08-20] MEDS: Topiramate 25 MG TABLET PO SCH (19:50)
[2017-08-21] MEDS: 0.9 % Sodium Chloride 1,000 ML IVC SCH ×3 (01:06→21:16)
[2017-08-21] MEDS: SUMAtriptan succinate 25 MG TABLET PO PRN ×2 (01:08→21:16)
[2017-08-21] MEDS: *HR* Enoxaparin 40 MG/0.4 ML SYRINGE SQ SCH (06:07)
[2017-08-21] MEDS: amLODIPine 5 MG TABLET PO SCH (07:57)
[2017-08-21] MEDS: Losartan/HCTZ 50-12.5 TABLET PO SCH (07:57)
[2017-08-21] MEDS: Loratadine 10 MG TABLET PO SCH (08:00)
[2017-08-21] MEDS: *HR* HYDROcodone/Acet 5/325 mg TABLET PO PRN ×2 (08:02→15:27)
[2017-08-21] MEDS: ALPRAZolam 1 MG TABLET PO PRN (10:56)
[2017-08-21] MEDS: Fluticasone Propionate Nasal 50 MCG/SPRAY BOTTLE NS SCH (10:57)
--- NOTE | 2017-08-21 11:33 | Infectious Disease Progress No ---
Date of Encounter: 08/21/17 Time of Encounter: 11:31 - Assessment and Plan (1) Sepsis Current Visit: Yes Status: Acute The patient had two SIRS criteria on admission and developed fever after admission. Likely secondary to UTI. Improved. Tachycardia and fevers have resolved. She continues to have leukocytosis, but not sure that it is related to infection. Repeat CBC ordered and pending at this time. Blood cultures drawn 08/18/17 are NGTD x 2 sets. Qualifiers: Sepsis type: Escherichia coli Qualified Code(s): A41.51 - Sepsis due to Escherichia coli [E. coli] (2) UTI (urinary tract infection) Current Visit: Yes Status: Acute Causative organism E. coli. Treated with 6 days of IV Cipro and 4 days of Rocephin. Resolved. Discontinue antibiotics and observe. Qualifiers: Urinary tract infection type: site unspecified Hematuria presence: without hematuria Qualified Code(s): N39.0 - Urinary tract infection, site not specified (3) Leukocytosis Current Visit: Yes Status: Acute WBC elevated on admission and continues to be elevated. Etiology unclear: Infection vs. Autoimmune/Irritable bowl disease. Evidence of granulomatous disease on CT scan. FLu PCR negative. Repeat blood cultures x 2 sets drawn 08/20/17 are pending. Continue to trend. Repeat CBC now. Qualifiers: Leukocytosis type: unspecified Qualified Code(s): D72.829 - Elevated white blood cell count, unspecified (4) Abdominal pain Current Visit: Yes Status: Acute Likely secondary to esophagitis, duodenitis, gastritis and UTI. LLQ abdominal pain likely related to UTI has resolved. Continue to have epigastric and LUQ pain. Status post EGD that showed esophagitis, gastritis and duodenitis. CT scan showed findings consistent with rectosigmoid colitis, but colonoscopy did not show evidence of this. PPI BID per GI recommendations. Consider starting Carafate. Consider possibility of Crohn's above the colon as the patient does have a family history. Further follow-up per GI. Qualifiers: Abdominal location: generalized Qualified Code(s): R10.84 - Generalized abdominal pain (5) Granulomatous disease Current Visit: Yes Status: Acute CT scan of the abdomen and pelvis showed granulomatous disease in the LLL and possibly in the spleen. Etiology unclear: Sarcoid vs. TB. (low index of suspicion based on clinical picture), histoplasmosis vs. other. CT chest shows sequelae of old granulomatous disease in the mediastinum and lungs. Check Quantiferon.--> pending. Consult pulmonology. Dr. Stoll aware. (6) Nausea and vomiting Current Visit: Yes Status: Resolved Likely secondary to esophagitis/gastritis/duodenitis. May have also had an element of gastroenteritis. Appears improved. Management per the primary team. Qualifiers: Vomiting type: unspecified Vomiting Intractability: unspecified Qualified Code(s): R11.2 - Nausea with vomiting, unspecified (7) Adrenal mass Current Visit: Yes Status: Acute Etiology unclear. Follow-up as an outpatient. (8) Tobacco dependence Current Visit: Yes Status: Chronic - Subjective Interval history: Patient seen and examined. No acute events noted overnight. Patient resting in bed with family at bedside. States she feels a little better this morning, but still feels weak and tired. Denies fevers, chills, or rigors. Complains of headache this morning. Denies neck pain or dizziness. Denies chest pain, shortness of breath, or cough. Complains of nausea and indigestion. States she was able to eat oatmeal and a couple of bites of sausage this morning. States pain continues to be in the epigastric and LUQ region. Denies dysuria, urinary frequency or lower abdomen/back/flank pain. Denies oral thrush or skin lesions. Infect Dis PN-Objective Data - Labs CBC & Chem 7: 08/21/17 12:27 08/21/17 12:27 Labs: Laboratory Results - last 24 hr 08/20/17 16:52 Influenza Type A (PCR) Negative Influenza Type B (PCR) Negative Cultures: Cultures 08/18/17 12:30 Blood Culture - Preliminary Peripheral Venipuncture No growth. 08/18/17 12:35 Blood Culture - Preliminary Peripheral Venipuncture No growth. Serology 08/20/17 Range/Units 16:52 Influenza Type A (PCR) Negative (Negative) Influenza Type B (PCR) Negative (Negative) - Impressions Impressions Chest CT 08/20/17 15:15 IMPRESSION: 1. Sequela of old granulomatous disease in the mediastinum and lungs. No acute airspace disease or suspicious pulmonary nodule is identified. This requires no further follow-up. 2. Partially visualized right adrenal nodule, previously evaluated with prior abdominal CT exams. D/ / Efrain Kim / Efrain Kim Interpreting Provider: Efrain Kim Exam - Constitutional Vitals: Temp Pulse Resp BP Pulse Ox 97.8 F 58 16 103/66 98 08/21/17 07:06 08/21/17 07:06 08/21/17 07:06 08/21/17 07:06 08/21/17 07:06 General appearance: average body habitus, cooperative, no acute distress - Head Head exam: Present: atraumatic, normal inspection, normocephalic - Eye Eye exam: Present: EOMI, normal appearance, PERRL Pupils: Present: normal accommodation - ENT ENT exam: Present: mucous membranes moist - Neck Neck exam: Present: normal inspection - Respiratory Respiratory exam: Present: CTAB. Absent: rales, respiratory distress, rhonchi, wheezes - Cardiovascular Cardiovascular exam: Present: RRR, +S1, +S2 - GI/Abdominal GI/Abdominal exam: Present: normal bowel sounds, soft, tenderness (Epigastric, LUQ). Absent: distended - Extremities Exam Extremities exam: Present: normal inspection. Absent: joint swelling, pedal edema, tenderness - Neurological Exam Neurological exam: Present: alert, oriented X3, no focal deficits - Psychiatric Psychiatric exam: Present: normal affect, normal mood - Skin Skin exam: Present: dry, intact, normal color, warm Consult Discharge Plan - Plan Referrals: Seth Mccurdy DO [Primary Care Provider] - - Attending Attestation I examined this patient and my medical decision-making was reviewed with the Resident Physician. I agree with the documented findings, disposition and treatment plan as described except to the extent set forth below. Discussed with Dr. Acuña. Hes not impressed with CT findings and he feels that they are old ROS and exposure history is total unremarkable. NO mulching, no gardening, no chickens at home or chicken coups to clean, no travel outside of the [facility], no exposure history
[2017-08-21 12:39] LABS: Basophils # 0.1 K/mcL (0.0-0.2); Basophils % 0.6 %; Eosinophils # 0.3 K/mcL (0.0-0.6); Eosinophils % 2.3 %; Hematocrit 41.1 % (35.3-44.9); Hemoglobin 13.2 g/dL (11.5-15.4); Immature Granulocytes % 0.5 % (0-4); Lymphocytes % 31.1 %; Mean Corpuscular HGB Conc 32.1 g/dL (31.6-35.5); Mean Corpuscular Hemoglobin 28.6 pg (28.0-33.3); Mean Corpuscular Volume 89.2 fL (83.0-100.0); Mean Platelet Volume 10.1 fL (9.4-12.4); Monocytes # 0.8 K/mcL (0.0-1.3); Monocytes % 6.4 %; Neutrophils # 7.5 K/mcL (1.6-8.9); Platelet Count 254 K/mcL (140-400); Red Blood Count 4.61 M/mcL (3.82-4.97); Red Cell Distribution Width 14.5 % (11.5-14.5); Segmented Neutrophils % 59.1 %
[2017-08-21 12:47] LABS: Calcium 8.6 mg/dL (8.6-10.3); Carbon Dioxide 22 mEq/L (23-29); Chloride 111 mEq/L (98-107); Potassium 4.3 mEq/L (3.5-5.1); Sodium 136 mEq/L (136-145)
[2017-08-21 12:53] LABS: BUN/Creatinine Ratio 23 (6-26); Blood Urea Nitrogen 15 mg/dL (6-20); Glucose 111 mg/dL (70-105); Osmolality,Calculated 284 (280-300); eGFR For African Americans > 60 (> 60); eGFR For Non-African Americans > 60 (> 60)
--- NOTE | 2017-08-21 13:53 | Pulmonology Consult Note ---
Date of Encounter: 08/21/17 Time of Encounter: 12:50 Assessment and Plan (1) Granulomatous lung disease Current Visit: Yes Status: Chronic I have personally reviewed CT chest and discussed with infectious disease consult team and no CT findings to be concern is his old exposure and most likely living in this area is the culprit with calcification in the lymph nodes suggesting previous exposure and there is no acute abnormalities with no indication to follow-up at this time. Thank you very much for consultation and will follow-up when necessary. (2) History of COPD Current Visit: Yes Status: Suspected Patient stated that she never had pulmonary function test and I have explained to her in order to diagnose with COPD and she needs pulmonary function tests which can be done as outpatient and she is on appropriate inhalers at this time. (3) Tobacco dependence Current Visit: Yes Status: Chronic Advised patient to quit smoking. History of Present Illness Consult date: 08/21/17 Requesting physician: Della Fernandez Reason for consult: abnormal CXR/CT Chief complaint: Abdominal pain and nausea and vomiting History of present illness: This is a pleasant 42-year-old female with significant history of smoking and she is diagnosed with COPD, but she stated she never had pulmonary function test and she has been on inhalers at home and also she use nebulizer family member sometimes. Patient presented to emergency room with abdominal pain and intractable nausea and vomiting. Patient was found granulomatous changes on the CT chest and infectious disease requested a consult from pulmonary. Patient denies any hematuria and denies any arthritis. She does have dyspnea on exertion with productive cough and sometimes chest pain. She does feel inhalers and nebulizer helping care. Patient has family history of asthma and she stated she easily gets bronchitis. She denies any history of smoking and she has raised and in this area as possible exposure to dust. Past Med Surg Social Fam HX - Past Medical History Medical history: asthma, COPD, diabetes (Borderline), hypertension Psychiatric history: anxiety - Past Surgical History Surgical History: , other (Tubal ) - Social History Smoking Status: Current every day smoker Packs per day: 1 Smokeless Tobacco Status: No Alcohol use: occasionally Drug use: none - Family History Mother Hx Family Genitourinary Disorders: Yes (kidney problems) Hx Family Endocrine Disorder: Yes (DM) Father Hx Family Cardiac Disorders: Yes (ID) Hx Family Respiratory Disorders: Yes Medications and Allergies ALPRAZolam [Xanax 1 MG Tablet] 1 mg PO TID 08/15/17 [History] Albuterol Sulfate [Proair Hfa] 2 puff IH Q4H PRN 08/15/17 [History] Baclofen [Lioresal] 10 mg PO HS 08/15/17 [History] Ciprofloxacin [Cipro] 500 mg PO BID #20 tablet 08/15/17 [Rx] Citalopram Hydrobromide [Celexa] 60 mg PO DAILY 08/15/17 [History] Fexofenadine HCl 180 mg PO DAILY 08/15/17 [History] Fluticasone Propionate Nasal [Flonase] 50 mcg NS DAILY 08/15/17 [History] Gabapentin [Neurontin] 600 mg PO TID PRN 08/15/17 [History] Losartan/HCTZ [Hyzaar 50-12.5 Tablet] 1 each PO DAILY 08/15/17 [History] Naproxen Sodium [Naproxen Sodium Ds] 550 mg PO BID 08/15/17 [History] Promethazine [Phenergan] 25 mg RC BID PRN #12 supp.rect 08/15/17 [Rx] SUMAtriptan succinate [Imitrex] 25 mg PO Q2H PRN MDD 50 mg 08/15/17 [History] Tiotropium Br/Olodaterol HCl [Stiolto Respimat Inhal [place]] 2 puff IH DAILY 02/22 [History] Topiramate [Topamax] 50 mg PO HS 08/15/17 [History] hydrOXYzine HCl [Hydroxyzine HCl] 25 mg PO TID PRN 08/15/17 [History] metroNIDAZOLE [Flagyl] 500 mg PO TID #30 tablet 08/15/17 [Rx] 3 Allergy/AdvReac Type Severity Reaction Status Date / Time No Known Allergies Allergy Verified 08/15/17 14:01 All Systems: A 10-system review of systems was performed and is negative for pertinent findings except as documented above in the HPI. Physical Examination Vital Signs: Vital Signs, Last 4 Hours Temp Pulse Resp BP Pulse Ox 08/21/17 11:38 98.1 F 76 16 117/70 99 General appearance: no acute distress Eyes: nonicteric ENT: oropharynx moist Mallampati (class): 2 Neck: supple, no lymphadenopathy Effort: normal Inspection: normal Auscultation: bilateral: clear Percussion: bilateral: not dull Cardiovascular: regular rate and rhythm Gastrointestinal: normoactive bowel sounds, non-distended Extremities: no cyanosis, no edema, no clubbing normal mental status, non-focal exam mood appropriate Results - Laboratory Findings CBC and BMP: 08/21/17 12:27 08/21/17 12:27 PT/INR, D-dimer PT 12.5 Seconds (9.4-12.1) H 08/19/17 10:24 Abnormal lab findings: Abnormal lab results WBC 12.7 K/mcL (4.3-11.1) H 08/21/17 12:27 PT 12.5 Seconds (9.4-12.1) H 08/19/17 10:24 Chloride 111 mEq/L (98-107) H 08/21/17 12:27 Carbon Dioxide 22 mEq/L (23-29) L 08/21/17 12:27 Glucose 111 mg/dL (70-105) H 08/21/17 12:27 POC Glucose 94 (58-89) H 08/18/17 15:11 AST 12 Units/L (13-39) L 08/15/17 15:31 Urine Clarity Cloudy (Clear) A 08/15/17 16:17 Urine Protein 30 mg/dL (Neg-Trace) H 08/15/17 16:17 Urine Blood Small (Negative) H 08/15/17 16:17 Urine Nitrite Positive (Negative) A 08/15/17 16:17 Ur Leukocyte Esterase Small (Negative) H 08/15/17 16:17 Urine Microscopic RBC 3-5 per hpf (0-3) H 08/15/17 16:17 Urine Microscopic WBC 15-30 per hpf (0-3) H 08/15/17 16:17 Ur Squamous Epith Cells Moderate per lpf (None-Few) H 08/15/17 16:17 Urine Bacteria Many per hpf (None-Few) H 08/15/17 16:17 Ur Culture Indicated? YES (NO) A 08/15/17 16:17 - Microbiology Findings Microbiology Findings: Microbiology, Last 48 Hours 08/18/17 12:30 Blood Culture - Preliminary Peripheral Venipuncture No growth. 08/18/17 12:35 Blood Culture - Preliminary Peripheral Venipuncture No growth. - Diagnostic Findings CT scan - chest: report reviewed, image reviewed - Clinical Findings Intake & Output: Intake & Output 08/20/17 08/21/17 08/21/17 23:59 07:59 15:59 Intake Total 1600 / 1600 Balance 1600 / 1600 Consult Discharge Plan - Plan Referrals: Seth Mccurdy DO [Primary Care Provider] -
--- NOTE | 2017-08-21 17:37 | Internal Med Progress Note ---
Date of Encounter: 08/21/17 Time of Encounter: 08:20 - Assessment and plan (1) Rectosigmoiditis Current Visit: Yes Status: Acute Assessment and plan: Per CT. EGD 08/20 showed LA grade D esophagitis with no bleeding, she is moderate inflammation characterized by edema, or erosions were found in the duodenal bulb. Scattered, moderate inflammation characterized by adherent blood , edema, erythema and friability was found in the gastric antrum. Biopsies were obtained. Impressions LA grade D reflux esophagitis, duodenitis, gastritis. GI recommends PPI twice a day, no NSAIDs, EGD repeat in 2 months. Colonoscopy 08/19/17 showed internal hemorrhoids, 7 mm nonbleeding polyp in the sigmoid colon, normal ileum. Repeat in 5 years. 08/21/17- patient tolerated full liquid diet well, we will advance to regular diet in the morning. She denies abdominal pain today states that she is feeling significantly better. Advance diet as tolerated Continue anti-emetics Follow-up with GI as mentioned above. (2) SIRS (systemic inflammatory response syndrome) Current Visit: Yes Status: Resolved (3) UTI (urinary tract infection) Current Visit: Yes Status: Resolved Assessment and plan: UA indicative of UTI. Urine culture with pansensitive Escherichia coli. Pt is being treated with Cipro and Rocephin IV, discontinue and observe. Pt asymptomatic. Qualifiers: Urinary tract infection type: site unspecified Hematuria presence: without hematuria Qualified Code(s): N39.0 - Urinary tract infection, site not specified (4) Anxiety Current Visit: Yes Status: Chronic Assessment and plan: Chronic. Continue home medications. Continue Xanax and Celexa. (5) COPD (chronic obstructive pulmonary disease) Current Visit: Yes Status: Chronic Assessment and plan: Chronic. NO acute exacerbation. Continue albuterol inhaler per home schedule. Chest x-ray is negative. Patient is not requiring supplemental oxygen. Lungs are clear and diminished. Qualifiers: COPD type: unspecified COPD Qualified Code(s): J44.9 - Chronic obstructive pulmonary disease, unspecified (6) Nausea and vomiting Current Visit: Yes Status: Resolved Assessment and plan: Tolerating full liquid diet well. We will advance to regular diet in the morning Continue antiemetics EGD showed grade D esophagitis, gastritis, duodenitis. Continue PPI twice daily. No NSAIDs. Qualifiers: Vomiting type: unspecified Vomiting Intractability: unspecified Qualified Code(s): R11.2 - Nausea with vomiting, unspecified (7) DVT prophylaxis Current Visit: Yes Status: Acute Assessment and plan: SQ Lovenox, encourage early ambulation. (8) Granulomatous disease Current Visit: Yes Status: Acute Assessment and plan: CT abdomen and pelvis showed granulomatous disease in the left lower lung and possibly the spleen. CT chest showed sequela of same in the mediastinum and lungs. QuantiFERON is still pending. Infectious disease has been consulted, they consulted pulmonology. Patient has been evaluated by Dr. Acuña, most likely an old exposure in environmental in nature from living in this area. He identifies there are no acute abnormalities and no indication follow-up at this time. He also recommends she has pulmonary function test for her diagnosis of COPD, she will have this done outpatient in the office. - Time Spent With Patient less than 15 minutes - Subjective Interval history: Pt was seen and assessed at bedside at 0820. Patient reports that she is feeling better and believes that her abdomen hurts due to being hungry. She has been advanced to a regular diet after tolerating full liquids. Abdomen is soft and nontender, bowel sounds present. She denies any nausea or vomiting for 3 days. She denies headache or chest pain or dizziness or shortness of breath. - Constitutional Vitals: Temp Pulse Resp BP Pulse Ox 98.0 F 73 16 99/65 97 08/21/17 15:33 08/21/17 15:33 08/21/17 15:33 08/21/17 15:33 08/21/17 15:33 General appearance: Present: mild distress, A&O X 3, pleasant, no acute distress , answers questions appropriately - Head Head exam: Present: atraumatic, normal inspection, normocephalic - Eye Eye exam: Present: normal appearance (No nuchal rigidity), conjuntiva pink, sclera anicteric - Neck Neck exam general surgery: Present: supple, trachea midline. Absent: lymphadenopathy - Respiratory Respiratory exam: Present: CTAB. Absent: accessory muscle use, chest wall tenderness, decreased breath sounds, rales, respiratory distress, rhonchi, wheezes - Cardiovascular Cardiovascular exam: Present: RRR, +S1, +S2. Absent: diastolic murmur, gallop, rubs, systolic murmur - GI/Abdominal GI/Abdominal exam: Present: normal bowel sounds, soft. Absent: distended, hepatomegaly (No hepatomegaly), tenderness - Extremities Exam Extremities exam: Present: warm, radial pulses palpable and symmetrical. Absent : calf tenderness, cyanotic, pedal edema - Neurological Exam Neurological exam: Present: alert, oriented X3, no focal deficits. Absent: facial droop, speech deficit - Skin Skin exam: Present: dry, intact, normal color, warm. Absent: rash Internal Medicine: Result - Labs CBC & Chem 7: 08/21/17 12:27 08/21/17 12:27 Labs: Short CBC 08/21/17 Range/Units 12:27 WBC 12.7 H (4.3-11.1) K/mcL Hgb 13.2 D (11.5-15.4) g/dL Hct 41.1 (35.3-44.9) % Plt Count 254 (140-400) K/mcL Neutrophils # 7.5 (1.6-8.9) K/mcL BMP 08/21/17 12:27 Sodium 136 Potassium 4.3 Chloride 111 H Carbon Dioxide 22 L BUN 15 Creatinine 0.65 Glucose 111 H Calcium 8.6 - ABG Interpretation ABG results: PT/INR, D-dimer PT 12.5 Seconds (9.4-12.1) H 08/19/17 10:24 Consult Discharge Plan - Plan Referrals: Seth Mccurdy DO [Primary Care Provider] -
[2017-08-21] MEDS: Topiramate 25 MG TABLET PO SCH (21:16)
[2017-08-21] MEDS: *HR* Promethazine 25 MG/ML VIAL IVP PRN (21:17)
[2017-08-21] MEDS ORDERED: Ketorolac 30 MG/ML VIAL IM ONE (23:49)
[2017-08-21] MEDS ORDERED: Metoclopramide 10 MG/2 ML VIAL IVP ONE (23:49)
[2017-08-22] MEDS ORDERED: Ketorolac 30 MG/ML VIAL IVP ONE (00:37)
[2017-08-22 05:17] LABS: Basophils # 0.1 K/mcL (0.0-0.2); Basophils % 0.6 %; Eosinophils # 0.3 K/mcL (0.0-0.6); Hematocrit 39.2 % (35.3-44.9); Hemoglobin 12.4 g/dL (11.5-15.4); Immature Granulocytes % 0.4 % (0-4); Lymphocytes # 4.2 K/mcL (0.6-4.6); Lymphocytes % 40.3 %; Mean Corpuscular HGB Conc 31.6 g/dL (31.6-35.5); Mean Corpuscular Hemoglobin 28.6 pg (28.0-33.3); Mean Corpuscular Volume 90.3 fL (83.0-100.0); Mean Platelet Volume 10.8 fL (9.4-12.4); Monocytes # 0.7 K/mcL (0.0-1.3); Monocytes % 6.6 %; Neutrophils # 5.2 K/mcL (1.6-8.9); Platelet Count 247 K/mcL (140-400); Red Blood Count 4.34 M/mcL (3.82-4.97); Red Cell Distribution Width 14.6 % (11.5-14.5); Segmented Neutrophils % 49.1 %
[2017-08-22 05:42] LABS: BUN/Creatinine Ratio 33 (6-26); Blood Urea Nitrogen 22 mg/dL (6-20); Calcium 8.5 mg/dL (8.6-10.3); Carbon Dioxide 22 mEq/L (23-29); Chloride 112 mEq/L (98-107); Glucose 109 mg/dL (70-105); Osmolality,Calculated 292 (280-300); Potassium 3.8 mEq/L (3.5-5.1); Sodium 139 mEq/L (136-145); eGFR For African Americans > 60 (> 60); eGFR For Non-African Americans > 60 (> 60)
[2017-08-22] MEDS: *HR* Enoxaparin 40 MG/0.4 ML SYRINGE SQ SCH (06:04)
[2017-08-22] MEDS: Loratadine 10 MG TABLET PO SCH (08:45)
[2017-08-22] MEDS: Losartan/HCTZ 50-12.5 TABLET PO SCH (08:45)
[2017-08-22] MEDS: amLODIPine 5 MG TABLET PO SCH (08:45)
[2017-08-22] MEDS: Fluticasone Propionate Nasal 50 MCG/SPRAY BOTTLE NS SCH (08:46)
[2017-08-22 11:04] VITALS: BP 99/62
--- NOTE | 2017-08-22 11:29 | Infectious Disease Progress No ---
Date of Encounter: 08/22/17 Time of Encounter: 11:27 - Assessment and Plan (1) Sepsis Status: Resolved The patient had two SIRS criteria on admission and developed fever after admission. Likely secondary to UTI. Improved. Tachycardia and fevers have resolved. Leukocytosis resolved. Blood cultures drawn 08/18/17 are NGTD x 2 sets. Qualifiers: Sepsis type: Escherichia coli Qualified Code(s): A41.51 - Sepsis due to Escherichia coli [E. coli] (2) UTI (urinary tract infection) Status: Resolved Causative organism E. coli. Treated with 6 days of IV Cipro and 4 days of Rocephin. Resolved. Continue to observe off antibiotics. Qualifiers: Urinary tract infection type: site unspecified Hematuria presence: without hematuria Qualified Code(s): N39.0 - Urinary tract infection, site not specified (3) Leukocytosis Status: Resolved WBC elevated on admission. Etiology unclear: Infection vs. Autoimmune/Irritable bowl disease. Evidence of granulomatous disease on CT scan. FLu PCR negative. Repeat blood cultures x 2 sets drawn 08/20/17 are NGTD. Resolved. Qualifiers: Leukocytosis type: unspecified Qualified Code(s): D72.829 - Elevated white blood cell count, unspecified (4) Abdominal pain Status: Acute Likely secondary to esophagitis, duodenitis, gastritis and UTI. LLQ abdominal pain likely related to UTI has resolved. Continue to have epigastric and LUQ pain. Status post EGD that showed esophagitis, gastritis and duodenitis. CT scan showed findings consistent with rectosigmoid colitis, but colonoscopy did not show evidence of this. PPI BID per GI recommendations. Consider starting Carafate. Consider possibility of Crohn's above the colon as the patient does have a family history. Further follow-up per GI. Qualifiers: Abdominal location: generalized Qualified Code(s): R10.84 - Generalized abdominal pain (5) Granulomatous disease Status: Acute CT scan of the abdomen and pelvis showed granulomatous disease in the LLL and possibly in the spleen. Etiology unclear: Sarcoid vs. TB. (low index of suspicion based on clinical picture), histoplasmosis vs. other. CT chest shows sequelae of old granulomatous disease in the mediastinum and lungs. Check Quantiferon.--> pending. Pulmonology consulted. No need for follow-up/treatment at this time. (6) Nausea and vomiting Status: Resolved Likely secondary to esophagitis/gastritis/duodenitis. May have also had an element of gastroenteritis. Appears improved. Management per the primary team. Qualifiers: Vomiting type: unspecified Vomiting Intractability: unspecified Qualified Code(s): R11.2 - Nausea with vomiting, unspecified (7) Adrenal mass Status: Acute Etiology unclear. Follow-up as an outpatient. (8) Tobacco dependence Status: Chronic - Subjective Interval history: Patient seen and examined. No acute events noted overnight. Patient resting in bed with family at bedside. States she feels a little better this morning. Denies fevers, chills, or rigors. Denies headache, neck pain or dizziness. Denies chest pain, shortness of breath, or cough. Complains of nausea and indigestion, but states it seems better today. States pain continues to be in the epigastric and LUQ region. Denies dysuria, urinary frequency or lower abdomen/back/flank pain. Denies oral thrush or skin lesions. States she wants to go home today. Infect Dis PN-Objective Data - Labs CBC & Chem 7: 08/22/17 04:45 08/22/17 04:45 Labs: Laboratory Results - last 24 hr 08/21/17 08/21/17 08/22/17 12:27 12:27 04:45 WBC 12.7 H 10.5 RBC 4.61 4.34 Hgb 13.2 D 12.4 Hct 41.1 39.2 MCV 89.2 90.3 MCH 28.6 28.6 MCHC 32.1 31.6 RDW 14.5 14.6 H Plt Count 254 247 MPV 10.1 10.8 Immature Gran % 0.5 0.4 Seg Neutrophils % 59.1 49.1 Lymphocytes % 31.1 40.3 Monocytes % 6.4 6.6 Eosinophils % 2.3 3.0 Basophils % 0.6 0.6 Neutrophils # 7.5 5.2 Lymphocytes # 4.0 4.2 Monocytes # 0.8 0.7 Eosinophils # 0.3 0.3 Basophils # 0.1 0.1 Sodium 136 Potassium 4.3 Chloride 111 H Carbon Dioxide 22 L BUN 15 Creatinine 0.65 Est GFR ( Amer) > 60 Est GFR (Non-Af Amer) > 60 BUN/Creatinine Ratio 23 Glucose 111 H Calculated Osmolality 284 Calcium 8.6 08/22/17 04:45 WBC RBC Hgb Hct MCV MCH MCHC RDW Plt Count MPV Immature Gran % Seg Neutrophils % Lymphocytes % Monocytes % Eosinophils % Basophils % Neutrophils # Lymphocytes # Monocytes # Eosinophils # Basophils # Sodium 139 Potassium 3.8 Chloride 112 H Carbon Dioxide 22 L BUN 22 H Creatinine 0.67 Est GFR ( Amer) > 60 Est GFR (Non-Af Amer) > 60 BUN/Creatinine Ratio 33 H Glucose 109 H Calculated Osmolality 292 Calcium 8.5 L Cultures: Cultures 08/20/17 14:42 Blood Culture - Preliminary Peripheral Venipuncture No growth. 08/20/17 14:42 Blood Culture - Preliminary Peripheral Venipuncture No growth. 08/18/17 12:30 Blood Culture - Preliminary Peripheral Venipuncture No growth. 08/18/17 12:35 Blood Culture - Preliminary Peripheral Venipuncture No growth. Serology 08/20/17 Range/Units 16:52 Influenza Type A (PCR) Negative (Negative) Influenza Type B (PCR) Negative (Negative) Exam - Constitutional Vitals: Temp Pulse Resp BP Pulse Ox 98.6 F 71 16 99/62 98 08/22/17 11:03 08/22/17 11:03 08/22/17 11:03 08/22/17 11:03 08/22/17 11:03 General appearance: average body habitus, no acute distress - Head Head exam: Present: atraumatic, normal inspection, normocephalic - Eye Eye exam: Present: EOMI, normal appearance, PERRL Pupils: Present: normal accommodation - ENT ENT exam: Present: mucous membranes moist - Neck Neck exam: Present: normal inspection - Respiratory Respiratory exam: Present: CTAB. Absent: rales, respiratory distress, rhonchi, wheezes - Cardiovascular Cardiovascular exam: Present: RRR, +S1, +S2 - GI/Abdominal GI/Abdominal exam: Present: normal bowel sounds, soft, tenderness (LUQ, epigastric). Absent: distended - Extremities Exam Extremities exam: Present: normal inspection. Absent: joint swelling, pedal edema, tenderness - Neurological Exam Neurological exam: Present: alert, oriented X3, no focal deficits - Psychiatric Psychiatric exam: Present: normal affect, normal mood - Skin Skin exam: Present: dry, intact, normal color, warm Consult Discharge Plan - Plan Instructions: Omeprazole (By mouth), Amlodipine (By mouth), Chronic Obstructive Pulmonary Disease (DC), Chronic Hypertension (DC) Additional Instructions: Follow up with your PCP in the next 7-10 days for a recheck. Talk to your PCP about ordering PFTs Return to the ER as needed for any other problems or concerns. Your new prescriptions are at your pharmacy. Eat smaller, more frequent meals and avoid spicy, fatty, or fried foods. Take your other medications as normal. REturn to your normal activities as tolerated. Referrals: [facility] [Provider Group] Ana Stoll MD [Partnered Physician] - Seth Mccurdy DO [Primary Care Provider] - 08/27/17 3:00 pm Prescriptions: amLODIPine [Norvasc] 10 mg PO DAILY #30 tablet Omeprazole [PriLOSEC] 20 mg PO BIDAC #60 capsule.dr - Attending Attestation I examined this patient and my medical decision-making was reviewed with the Resident Physician. I agree with the documented findings, disposition and treatment plan as described except to the extent set forth below.
--- NOTE | 2017-08-22 11:44 | Discharge Summary ---
Date of Encounter: 08/22/17 Time of Encounter: 08:55 - Discharge Diagnosis (1) Colitis Priority: Primary Status: Acute Comments: EGD showed esophagitis, duodenitis, gastritis. Patient presented with abdominal pain, nausea, vomiting, diarrhea. All symptoms have resolved. Patient with possibility of Crohn's disease, patient has family history. PPI twice daily per GI recommendations. Educated patient on diet and lifestyle modifications. (2) SIRS (systemic inflammatory response syndrome) Priority: Secondary Status: Resolved Comments: Patient met 2 SIRS criteria on admission. Most likely secondary to UTI. All symptoms have improved, patient has no leukocytosis, tachycardia, no fever. She is normotensive. Blood cultures are negative 2 sets. Patient was treated with 6 days of IV Cipro 4 days of IV Rocephin for UTI, antibiotics were stopped prior to discharge. (3) UTI (urinary tract infection) Priority: Secondary Status: Resolved Comments: Escherichia coli. Patient was treated with 6 days of IV Cipro, Fortaz IV Rocephin. IV antibiotics were stopped. SIRS criteria resolved. Patient denies urinary symptoms. Qualifiers: Urinary tract infection type: site unspecified Hematuria presence: without hematuria Qualified Code(s): N39.0 - Urinary tract infection, site not specified (4) Anxiety Priority: Secondary Status: Chronic Comments: Chronic. Continue home medications. (5) COPD (chronic obstructive pulmonary disease) Priority: Secondary Status: Chronic Comments: No acute exacerbation. Patient's lungs are clear. Pupils are stable. Patient does not require supplemental oxygen. Continue home medications. Qualifiers: COPD type: unspecified COPD Qualified Code(s): J44.9 - Chronic obstructive pulmonary disease, unspecified (6) Nausea and vomiting Priority: Secondary Status: Resolved Comments: Resolved. Patient was treated with antibiotics and IV fluids. Electrolyte balance maintained. Patient has Zofran for home use. Qualifiers: Vomiting type: unspecified Vomiting Intractability: unspecified Qualified Code(s): R11.2 - Nausea with vomiting, unspecified (7) DVT prophylaxis Priority: Secondary Status: Acute Comments: Lovenox subcutaneous. (8) Granulomatous disease Priority: Secondary Status: Acute Comments: Procedures CT scan. Patient was evaluated by pulmonology as well as infectious disease. No CT findings of concern, this is an old exposure most likely living in this area caused the calcifications in the lymph nodes. There is no indication for follow-up at this time. (9) Abdominal pain Priority: Secondary Status: Acute Comments: Secondary to gastritis, esophagitis, duodenitis. Plan as above. Qualifiers: Abdominal location: generalized Qualified Code(s): R10.84 - Generalized abdominal pain (10) Adrenal mass Priority: Secondary Status: Acute Comments: Stable. Unclear etiology. Follow-up with primary care outpatient. - Discharge Medications Prescriptions: amLODIPine [Norvasc] 10 mg PO DAILY #30 tablet Omeprazole [PriLOSEC] 20 mg PO BIDAC #60 capsule. Home Medications: ALPRAZolam [Xanax 1 MG Tablet] 1 mg PO TID 08/15/17 [History] Albuterol Sulfate [Proair Hfa] 2 puff IH Q4H PRN 08/15/17 [History] Baclofen [Lioresal] 10 mg PO HS 08/15/17 [History] Citalopram Hydrobromide [Celexa] 60 mg PO DAILY 08/15/17 [History] Fexofenadine HCl 180 mg PO DAILY 08/15/17 [History] Fluticasone Propionate Nasal [Flonase] 50 mcg NS DAILY 08/15/17 [History] Gabapentin [Neurontin] 600 mg PO TID PRN 08/15/17 [History] Losartan/HCTZ [Hyzaar 50-12.5 Tablet] 1 each PO DAILY 08/15/17 [History] Naproxen Sodium [Naproxen Sodium Ds] 550 mg PO BID 08/15/17 [History] SUMAtriptan succinate [Imitrex] 25 mg PO Q2H PRN MDD 50 mg 08/15/17 [History] Tiotropium Br/Olodaterol HCl [Stiolto Respimat Inhal [place]] 2 puff IH DAILY 02/22 [History] Topiramate [Topamax] 50 mg PO HS 08/15/17 [History] hydrOXYzine HCl [Hydroxyzine HCl] 25 mg PO TID PRN 08/15/17 [History] Omeprazole [PriLOSEC] 20 mg PO BIDAC #60 capsule. 08/22/17 [Rx] amLODIPine [Norvasc] 10 mg PO DAILY #30 tablet 08/22/17 [Rx] Allergies/Adverse Reactions: 3 Allergy/AdvReac Type Severity Reaction Status Date / Time No Known Allergies Allergy Verified 08/15/17 14:01 Procedures/tests Complete & Pending: Procedures Performed prior 72 hours Category Date Time Status CT chest w con [CT] Routine Cat Scan 08/20/17 15:15 Completed Date of admission: 08/15/17 20:20 Primary care physician: Ashly Puente Consults: 08/16/17 09:41 Consult to Gastroenterology [CONS] Routine Consulting Provider: [facility] Reason for Consult: N/V/D Call Completed: Yes 08/20/17 10:43 Consult to Infectious Diseases [CONS] Routine Consulting Provider: [facility] Reason for Consult: persistent leukocytosis. Pt is on Ceftriaxone, flagyl, and Cipro for colitis without improvment in WBC.Pt met SIRS criteria on admission. Current UTI E. coli, treating with ceftriaxone. Recommendations, please. Time Notified: 10:44 Call Completed: Yes 08/21/17 13:16 Consult to Pulmonology [CONS] Routine Consulting Provider: [facility] [place] Reason for Consult: Granulomatous disease Time Notified: 13:16 Call Completed: Yes Discharging clinician: Alyssa Castrejon Anticipated date of discharge: 08/22/17 - Patient Status Disposition: Home, Self-Care Condition: Good Functional capacity at discharge: independent ambulation Overall status at discharge: patient is back to baseline - Discharge Instructions Instructions: Omeprazole (By mouth), Amlodipine (By mouth), Chronic Obstructive Pulmonary Disease (DC), Chronic Hypertension (DC) Follow Up With: [facility] [Provider Group] Ana Stoll MD [Partnered Physician] - Seth Mccurdy DO [Primary Care Provider] - 08/27/17 3:00 pm Additional Instructions: Follow up with your PCP in the next 7-10 days for a recheck. Talk to your PCP about ordering PFTs Return to the ER as needed for any other problems or concerns. Your new prescriptions are at your pharmacy. Eat smaller, more frequent meals and avoid spicy, fatty, or fried foods. Take your other medications as normal. REturn to your normal activities as tolerated. - Diet and Activity Activity: increase activity as tolerated Diet: low fat, low cholesterol Hospital course: Ms. Espinoza is a 42 year old female with medical history significant for hypertension, COPD, anxiety, smoking, migraines. Patient presented to emergency room with abdominal pain. Abdominal CT was concerning for rectosigmoid colitis. Patient, B and EGD was positive for vaginitis gastritis and duodenitis. She was placed on PPI twice daily which way she will continue at home. Patient had leukocytosis the rest of the visit, she was evaluated by infectious disease, no clear etiology for sustained leukocytosis other than UTI. She was treated with 4 days of IV Cipro as well as Rocephin IV. Give her both stopped prior to discharge. Patient is able to tolerate a regular diet without distress. CT chest as well as CT abdomen and pelvis were concerning for granulomatous disease. She was evaluated by pulmonology, no acute concerning findings. There is no need for follow-up. Also noted on abdominal CT was no adrenal mass that is stable, she will need to follow up outpatient with primary care for continued evaluation. Patient's labs and vitals are stable and within normal limits. Patient is appropriate stable for discharge. - Time Spent with Patient Total time spent providing and/or coordinating discharge services: Less than 30 minutes - Constitutional Vitals: Temp Pulse Resp BP Pulse Ox 98.6 F 71 16 99/62 98 08/22/17 11:03 08/22/17 11:03 08/22/17 11:03 08/22/17 11:03 08/22/17 11:03 General appearance: Present: cooperative, mild distress, A&O X 3, pleasant, no acute distress, answers questions appropriately - Head Head exam: Present: atraumatic, normal inspection, normocephalic - Eye Eye exam: Present: conjuntiva pink, sclera anicteric - Neck Neck exam general surgery: Present: normal inspection, supple, trachea midline. Absent: lymphadenopathy, tenderness - Respiratory Respiratory exam: Present: CTAB. Absent: accessory muscle use, chest wall tenderness, rales, respiratory distress, rhonchi, wheezes - Cardiovascular Cardiovascular exam: Present: RRR, +S1, +S2. Absent: diastolic murmur, gallop, rubs, systolic murmur - GI/Abdominal GI/Abdominal exam: Present: normal bowel sounds, soft. Absent: distended, hepatomegaly, tenderness - Extremities Exam Extremities exam: Present: normal capillary refill, normal inspection, warm, radial pulses palpable and symmetrical. Absent: calf tenderness, cyanotic, pedal edema, tenderness - Neurological Exam Neurological exam: Present: alert, oriented X3, no focal deficits. Absent: facial droop, speech deficit - Skin Skin exam: Present: dry, intact, normal color, warm. Absent: rash
[2017-08-24 15:29] LABS: QuantiFERON Mitogen minus NIL >10.00 IU/mL; QuantiFERON-TB minus NIL 0.01 IU/mL (0.00-0.34)
[2017-08-26 07:19] LABS: QuantiFERON NIL 0.04 IU/mL; QuantiFERON-TB Gold In-Tube NEGATIVE (Negative)
== END 2017-08-22 14:15 | disposition home or self-care (01) ==
LOC: 3BNU 13:57 → EMEROO 13:57 → 3BNU 20:55
PROVIDERS: ADMIT Registered Nurse; ATTEND Registered Nurse
PROC: ENDOEBX (2017-08-19 13:00)